=== PATIENT | male | born 1980 | race Hispanic/Latino ===

== ENCOUNTER 2018-10-23 18:09 | Emergency (ER) | payer BC, OTHER ==
--- NOTE | 2018-10-23 19:24 | EDPHYS ---
Physician Documentation [facility] Name: Zak Espinoza Age: 38 yrs Sex: Male : 1980 Arrival Date: 10/23/2018 Time: 18:10 Bed Treatment Private MD: Fred Rodrigues R ED Physician Ford Walker HPI: 10/23 19:57 This 38 yrs old Male presents to ER via Ambulatory with complaints of Groin jr8 Pain, Knee Pain. 19:57 The complaints affect the medial aspect of left thigh. Onset: The symptoms/episode jr8 began/occurred acutely, 2 day(s) ago. Modifying factors: The symptoms are alleviated by nothing. the symptoms are aggravated by movement, weight bearing. Associated signs and symptoms: The patient has no apparent associated signs or symptoms. Severity of symptoms: At their worst the symptoms were mild, in the emergency department the symptoms are unchanged. The patient has not experienced similar symptoms in the past. The patient has not recently seen a physician. Stated that the other day while at work. Was standing still and then initiated movement causing sharp pain to left medial thigh region. Since then describes pain as spasm feeling that will not go away with OTC medication . Historical: - Allergies: 18:23 No Known Allergies; aj - Home Meds: 18:23 None [Active]; aj - PMHx: 18:23 None; aj - PSHx: 18:23 None; aj - Immunization history:: Adult Immunizations up to date. - Social history:: Smoking status: Patient/guardian denies using tobacco. - Ebola Screening: : Patient negative for fever greater than or equal to 101.5 degrees Fahrenheit, and additional compatible Ebola Virus Disease symptoms Patient denies exposure to infectious person Patient denies travel to an Ebola-affected area in the 21 days before illness onset No symptoms or risks identified at this time. ROS: 19:57 Eyes: Negative for injury, pain, redness, and discharge, ENT: Negative for injury, jr8 pain, and discharge, Neck: Negative for injury, pain, and swelling, Cardiovascular: Negative for chest pain, palpitations, and edema, Respiratory: Negative for shortness of breath, cough, wheezing, and pleuritic chest pain, Abdomen/GI: Negative for abdominal pain, nausea, vomiting, diarrhea, and constipation, Back: Negative for injury and pain, Skin: Negative for injury, rash, and discoloration, Neuro: Negative for headache, weakness, numbness, tingling, and seizure. 19:57 MS/extremity: Positive for pain, of the left upper thigh. Exam: 19:57 Eyes: Pupils equal round and reactive to light, extra-ocular motions intact. Lids and jr8 lashes normal. Conjunctiva and sclera are non-icteric and not injected. Cornea within normal limits. Periorbital areas with no swelling, redness, or edema. ENT: Nares patent. No nasal discharge, no septal abnormalities noted. Tympanic membranes are normal and external auditory canals are clear. Oropharynx with no redness, swelling, or masses, exudates, or evidence of obstruction, uvula midline. Mucous membranes moist. Neck: Trachea midline, no thyromegaly or masses palpated, and no cervical lymphadenopathy. Supple, full range of motion without nuchal rigidity, or vertebral point tenderness. No Meningismus. Cardiovascular: Regular rate and rhythm with a normal S1 and S2. No gallops, murmurs, or rubs. Normal PMI, no JVD. No pulse deficits. Respiratory: Lungs have equal breath sounds bilaterally, clear to auscultation and percussion. No rales, rhonchi or wheezes noted. No increased work of breathing, no retractions or nasal flaring. Abdomen/GI: Soft, non-tender, with normal bowel sounds. No distension or tympany. No guarding or rebound. No evidence of tenderness throughout. Back: No spinal tenderness. No costovertebral tenderness. Full range of motion. Skin: Warm, dry with normal turgor. Normal color with no rashes, no lesions, and no evidence of cellulitis. Neuro: Awake and alert, GCS 15, oriented to person, place, time, and situation. Cranial nerves II-XII grossly intact. Motor strength 5/5 in all extremities. Sensory grossly intact. Cerebellar exam normal. Normal gait. 19:57 Musculoskeletal/extremity: Extremities: grossly normal except: noted in the medial aspect of left thigh: pain, tenderness, ROM: intact in all extremities, full active range of motion, full passive range of motion, Circulation is intact in all extremities. Sensation intact. Vital Signs: 18:23 BP 141 / 97; Pulse 90; Resp 16; Temp 98.0; Pulse Ox 99% on R/A; Weight 136.08 kg; aj Height 5 ft. 9 in. (175.26 cm); 18:23 Body Mass Index 44.30 (136.08 kg, 175.26 cm) aj MDM: 19:11 Patient medically screened. jr8 19:22 Data reviewed: vital signs, nurses notes, and as a result, I will discharge patient. jr8 Data interpreted: Pulse oximetry: on room air is 99 %. Interpretation: normal. Counseling: I had a detailed discussion with the patient and/or guardian regarding: the historical points, exam findings, and any diagnostic results supporting the discharge/admit diagnosis, the need for outpatient follow up, a family practitioner, to return to the emergency department if symptoms worsen or persist or if there are any questions or concerns that arise at home. Administered Medications: No medications were administered Disposition: 10/23/18 19:23 Discharged to Home. Impression: Muscle spasm, Pain in left thigh. - Condition is Stable. - Discharge Instructions: Muscle Cramps and Spasms, Musculoskeletal Pain. - Prescriptions for Mobic 7.5 mg Oral Tablet - take 1 tablet by ORAL route once daily take with food; 20 tablet. Cyclobenzaprine 10 mg Oral Tablet - take 1 tablet by ORAL route every 8 hours As needed; 30 tablet. - Medication Reconciliation Form, Thank You Letter, Antibiotic Education, Prescription Opioid Use form. - Follow up: Fred Rodrigues MD; When: 1 week; Reason: Recheck today's complaints, Continuance of care, Re-evaluation by your physician. - Problem is new. - Symptoms have improved. Addendum: 10/25/2018 02:06 Co-signature as Attending Physician, Ford Walker MD. g s Signatures: Berta Laguerre RN RN aj1 Ashley Lucio RN RN aj Abiodun Matute PA PA jr8 Ford Walker MD MD Corrections: (The following items were deleted from the chart) 10/23 20:00 19:23 10/23/2018 19:23 Discharged to Home. Impression: Muscle spasm; Pain in left aj1 thigh. Condition is Stable. Forms are Medication Reconciliation Form, Thank You Letter, Antibiotic Education, Prescription Opioid Use. Follow up: Fred Rodrigues; When: 1 week; Reason: Recheck today's complaints, Continuance of care, Re-evaluation by your physician. Problem is new. Symptoms have improved. jr8
--- NOTE | 2018-10-23 19:24 | ER ---
Nurse's Notes [facility] Name: Zak Espinoza Age: 38 yrs Sex: Male : 1980 Arrival Date: 10/23/2018 Time: 18:10 Bed Treatment Private MD: Fred Rodrigues R Diagnosis: Muscle spasm;Pain in left thigh Presentation: 10/23 18:22 Presenting complaint: Patient states: Pain in left groin that radiates down left leg to aj knee, worse with movement. Transition of care: patient was not received from another setting of care. Onset of symptoms was October 20, 2018. Risk Assessment: Do you want to hurt yourself or someone else? Patient reports no desire to harm self or others. Initial Sepsis Screen: Does the patient meet any 2 criteria? No. Patient's initial sepsis screen is negative. Does the patient have a suspected source of infection? No. Patient's initial sepsis screen is negative. Care prior to arrival: None. 18:22 Method Of Arrival: Ambulatory 18:22 Acuity: MATT 4 aj Triage Assessment: 18:23 General: Appears in no apparent distress. comfortable, Behavior is calm, cooperative, aj appropriate for age. Pain: Complains of pain in left upper thigh and left quadriceps. Neuro: Level of Consciousness is awake, alert, obeys commands, Oriented to person, place, time, situation, Appropriate for age. Respiratory: Airway is patent Respiratory effort is even, unlabored, Respiratory pattern is regular, symmetrical. Derm: Skin is intact, is healthy with good turgor, Skin is. Historical: - Allergies: 18:23 No Known Allergies; aj - Home Meds: 18:23 None [Active]; aj - PMHx: 18:23 None; aj - PSHx: 18:23 None; aj - Immunization history:: Adult Immunizations up to date. - Social history:: Smoking status: Patient/guardian denies using tobacco. - Ebola Screening: : Patient negative for fever greater than or equal to 101.5 degrees Fahrenheit, and additional compatible Ebola Virus Disease symptoms Patient denies exposure to infectious person Patient denies travel to an Ebola-affected area in the 21 days before illness onset No symptoms or risks identified at this time. Screenin:58 Abuse screen: Denies threats or abuse. Denies injuries from another. Nutritional aj1 screening: No deficits noted. Tuberculosis screening: No symptoms or risk factors identified. Fall Risk None identified. Assessment: 19:58 General: Appears in no apparent distress. comfortable, Behavior is calm, cooperative, aj1 appropriate for age. Pain: Complains of pain in left quadriceps and left upper thigh Pain does not radiate. Neuro: Level of Consciousness is awake, alert, obeys commands. Cardiovascular: Patient's skin is warm and dry. Respiratory: Airway is patent Respiratory effort is even, unlabored, Respiratory pattern is regular, symmetrical. GI: No signs and/or symptoms were reported involving the gastrointestinal system. : No signs and/or symptoms were reported regarding the genitourinary system. Derm: Skin is pink, warm \T\ dry. normal. Vital Signs: 18:23 BP 141 / 97; Pulse 90; Resp 16; Temp 98.0; Pulse Ox 99% on R/A; Weight 136.08 kg; aj Height 5 ft. 9 in. (175.26 cm); 18:23 Body Mass Index 44.30 (136.08 kg, 175.26 cm) aj ED Course: 18:10 Patient arrived in ED. as 18:10 None, None is Private Physician. as 18:10 Fred Rodrigues MD is Private Physician. as 18:23 Triage completed. aj 18:23 Arm band placed on left wrist. Patient placed in waiting room, Patient notified of wait aj time. 19:07 Berta Laguerre, GORDON is Primary Nurse. aj1 19:10 Abiodun Matute PA is PHCP. jr8 19:10 Ford Walker MD is Attending Physician. jr8 19:23 Fred Rodrigues MD is Referral Physician. jr8 19:58 Patient has correct armband on for positive identification. aj1 19:58 No provider procedures requiring assistance completed. Patient did not have IV access aj1 during this emergency room visit. Administered Medications: No medications were administered Outcome: 19:23 Discharge ordered by . jr8 19:58 Discharged to home ambulatory, with family. aj1 19:58 Condition: good 19:58 Discharge instructions given to patient, Instructed on discharge instructions, follow up and referral plans. Demonstrated understanding of instructions, follow-up care. 20:00 Patient left the ED. aj1 Signatures: Berta Laguerre RN RN aj1 Ashley Lucio RN RN Becky Salcedo Josh, MIKALA BACH jr8
== END 2018-10-23 20:00 | disposition home or self-care (01) ==
LOC: ER 18:09
DX: M62.838 Other muscle spasm (principal)
CPT/HCPCS: 99281

== ENCOUNTER 2021-03-08 08:09 | Emergency (ER) | payer BC, SELFPAY ==
[2021-03-08] MEDS ORDERED: CASIRIVIMAB/IMDEVIMAB 10 ML VIAL ONE (09:10)
[2021-03-08] MEDS ORDERED: NA CHLORIDE 0.9% 250 ML ONE (09:11)
--- NOTE | 2021-03-08 09:36 | RAD REPORT ---
EXAM DESCRIPTION: RAD - Chest Single View - 03/08/2021 9:08 am CLINICAL HISTORY: COVID, sob Chest pain. COMPARISON: No comparisons FINDINGS: Portable technique limits examination quality. Mild to moderate bilateral pulmonary opacities are present, greatest in the right upper lobe, likely representing underlying viral infection. The heart is normal in size. No displaced fractures.
--- NOTE | 2021-03-08 10:12 | EDPHYS ---
Physician Documentation [facility] Name: Zak Espinoza Age: 40 yrs Sex: Male : 1980 Arrival Date: 03/08/2021 Time: 08:12 Bed 24 Private MD: ED Physician Jim Weiss HPI: 03/08 09:11 This 40 yrs old Male presents to ER via Ambulatory with complaints of rn Shortness Of Breath. 09:11 The patient has shortness of breath at rest, with light activity. Onset: The rn symptoms/episode began/occurred 6 day(s) ago. Duration: The symptoms are intermittent. Duration: The symptoms are intermittent. The patient's shortness of breath is aggravated by exertion, light activity, is alleviated by sitting up. Associated signs and symptoms: Pertinent positives: non-productive cough, Pertinent negatives: fever, hemoptysis, loss of consciousness, vomiting. Severity of symptoms: At their worst the symptoms were mild in the emergency department the symptoms are unchanged. The patient has not experienced similar symptoms in the past. The patient has not recently seen a physician. Patient reports 6 days into his Covid illness, Covid positive, reports mild cough and shortness of breath. Shortness of breath is more when he is sleeping and improved when he sits up. Used to be smoker. No other chronic medical problems. Daughter hospitalized with Covid at [facility]. Another family member also with Covid in the house.. Historical: - Allergies: 08:28 No Known Allergies; jl7 - Home Meds: 08:28 None [Active]; jl7 - PMHx: 08:28 None; jl7 - PSHx: 08:28 None; jl7 - Immunization history:: Adult Immunizations not up to date, Client reports having NOT received the Covid vaccine. - Social history:: Smoking status: Patient denies any tobacco usage or history of. - Family history:: not pertinent. - Hospitalizations: : No recent hospitalization is reported. ROS: 09:11 Constitutional: Negative for fever, chills, and weight loss, Eyes: Negative for injury, rn pain, redness, and discharge, ENT: Negative for injury, pain, and discharge, Neck: Negative for injury, pain, and swelling, Cardiovascular: Negative for chest pain, palpitations, and edema, Respiratory: Negative for wheezing, and pleuritic chest pain Abdomen/GI: Negative for abdominal pain, nausea, vomiting, diarrhea, and constipation, Back: Negative for injury and pain, : Negative for injury, bleeding, discharge, and swelling, MS/Extremity: Negative for injury and deformity, Skin: Negative for injury, rash, and discoloration, Neuro: Negative for headache, numbness, tingling, and seizure. 09:11 All other systems are negative. Exam: 09:11 Constitutional: Overweight male, no acute distress, ambulatory to room Head/Face: rn Normocephalic, atraumatic. Eyes: Pupils equal round and reactive to light, extra-ocular motions intact. Lids and lashes normal. Conjunctiva and sclera are non-icteric and not injected. Cornea within normal limits. Periorbital areas with no swelling, redness, or edema. ENT: No stridor. Mucous membranes moist. Cardiovascular: Regular rate and rhythm. No pulse deficits. Respiratory: No increased work of breathing, no retractions or nasal flaring. Abdomen/GI: Soft, non-tender Skin: Warm, dry MS/ Extremity: Pulses equal, no cyanosis. Neuro: Awake and alert, GCS 15, oriented to person, place, time, and situation. Cranial nerves II-XII grossly intact. Motor strength 5/5 in all extremities. Sensory grossly intact. Cerebellar exam normal. Normal gait. Vital Signs: 08:24 BP 139 / 85; Pulse 88; Resp 17; Temp 97.1; Pulse Ox 98% on R/A; Weight 124.74 kg; jl7 Height 5 ft. 9 in. (175.26 cm); Pain 7/10; 08:41 BP 139 / 85; Pulse 88; Resp 18; Temp 97.1; Pulse Ox 100% ; aj2 10:48 BP 132 / 80; Pulse 80; Resp 20; Temp 97.1; Pulse Ox 99% ; aj2 08:24 Body Mass Index 40.61 (124.74 kg, 175.26 cm) 7 MDM: 08:29 Patient medically screened. rn 10:10 Differential diagnosis: Bronchitis pneumonia, Pneumothorax Covid. Data reviewed: vital rn signs, nurses notes, radiologic studies, plain films, and as a result, I will discharge patient. Data interpreted: monitor technician: rate is 88 beats/min, rhythm is normal sinus rhythm, regular, with no ectopy, Interpretation: normal rate, normal rhythm, Pulse oximetry: on room air is 100 %. Interpretation: normal. Counseling: I had a detailed discussion with the patient and/or guardian regarding: the historical points, exam findings, and any diagnostic results supporting the discharge/admit diagnosis, radiology results, the need for outpatient follow up, to return to the emergency department if symptoms worsen or persist or if there are any questions or concerns that arise at home. Special discussion: I discussed with the patient/guardian in detail that at this point there is no indication for admission to the hospital. It is understood, however, that if the symptoms persist or worsen the patient needs to return immediately for re-evaluation. 03/08 08:40 Order name: XRAY Chest (1 view); Complete Time: 09:37 rn 03/08 08:40 Order name: IV Start; Complete Time: 08:58 rn 03/08 08:40 Order name: Cardiac monitoring; Complete Time: 08:58 rn 03/08 08:40 Order name: O2 Sat Monitoring; Complete Time: 08:58 rn Administered Medications: 09:41 Drug: REGEN-COV Dose Pack 120 mg/mL-120 mg/mL (EUA) 600 mg Route: IV; Rate: calculated aj2 rate; Site: right antecubital; 10:51 Follow up: Rate change ml/hr; IV Status: Completed infusion aj2 Disposition Summary: 03/08/21 10:11 Discharge Ordered Location: Home rn Problem: new rn Symptoms: are unchanged rn Condition: Stable rn Diagnosis - Pneumonia due to SARS-associated coronavirus rn Followup: rn - With: Private Physician - When: As needed - Reason: Recheck today's complaints, Re-evaluation by your physician Discharge Instructions: - Discharge Summary Sheet rn - COVID-19 rn - COVID-19 Frequently Asked Questions rn - 10 Things You Can Do to Manage Your COVID-19 Symptoms at Home - [facility] rn Forms: - Medication Reconciliation Form rn - Thank You Letter rn - Antibiotic last turner - Prescription Opioid Use rn Signatures: Dispatcher [employer] Jim Hernandez MD MD rn Leal, Jahala, RN RN Chema Sal aj2
--- NOTE | 2021-03-08 10:12 | ER ---
Nurse's Notes [facility] Name: Zak Espinoza Age: 40 yrs Sex: Male : 1980 Arrival Date: 03/08/2021 Time: 08:12 Bed 24 Private MD: Diagnosis: Pneumonia due to SARS-associated coronavirus Presentation: 03/08 08:24 Chief complaint: Patient states: Covid + x 6 days with self test from [facility], increased jl7 SOB x 2 days; non-radiating, midsternal chest pain x 1 day. Coronavirus screen: Vaccine status: Patient reports being unvaccinated. Client presents with at least one sign or symptom that may indicate coronavirus-19. Standard/surgical mask placed on the client. Provider contacted for isolation considerations. Client reports previous positive COVID test result. Date of collection: March 03, 2021 home test. Ebola Screen: No symptoms or risks identified at this time. Initial Sepsis Screen: Does the patient meet any 2 criteria? No. Patient's initial sepsis screen is negative. Does the patient have a suspected source of infection? No. Patient's initial sepsis screen is negative. Risk Assessment: Do you want to hurt yourself or someone else? Patient reports no desire to harm self or others. Onset of symptoms was March 03, 2021. Care prior to arrival: None. 08:24 Method Of Arrival: Ambulatory [facility] 08:24 Acuity: MATT 2 jl7 Triage Assessment: 08:28 General: Appears in no apparent distress. uncomfortable, Behavior is calm, cooperative, jl7 appropriate for age. Pain: Complains of pain in mid-sternal area Pain does not radiate. Pain currently is 7 out of 10 on a pain scale. Respiratory: Reports shortness of breath Onset: The symptoms/episode began/occurred gradually, the patient has mild shortness of breath. Historical: - Allergies: 08:28 No Known Allergies; jl7 - Home Meds: 08:28 None [Active]; jl7 - PMHx: 08:28 None; jl7 - PSHx: 08:28 None; jl7 - Immunization history:: Adult Immunizations not up to date, Client reports having NOT received the Covid vaccine. - Social history:: Smoking status: Patient denies any tobacco usage or history of. - Family history:: not pertinent. - Hospitalizations: : No recent hospitalization is reported. Screenin:41 Abuse screen: Denies threats or abuse. Denies injuries from another. Nutritional aj2 screening: No deficits noted. Tuberculosis screening: No symptoms or risk factors identified. Fall Risk None identified. Assessment: 08:41 Cardiovascular: Rhythm is. Respiratory: Airway is patent Respiratory effort is aj2 unlabored. 08:44 Reassessment: Patient appears in no apparent distress at this time. Patient is alert, aj2 oriented x 3, equal unlabored respirations, skin warm/dry/pink. 10:48 Reassessment: Patient appears in no apparent distress at this time. Patient and/or aj2 family updated on plan of care and expected duration. Pain level reassessed. Patient is alert, oriented x 3, equal unlabored respirations, skin warm/dry/pink. Respiratory: No deficits noted. Vital Signs: 08:24 BP 139 / 85; Pulse 88; Resp 17; Temp 97.1; Pulse Ox 98% on R/A; Weight 124.74 kg; jl7 Height 5 ft. 9 in. (175.26 cm); Pain 7/10; 08:41 BP 139 / 85; Pulse 88; Resp 18; Temp 97.1; Pulse Ox 100% ; aj2 10:48 BP 132 / 80; Pulse 80; Resp 20; Temp 97.1; Pulse Ox 99% ; aj2 08:24 Body Mass Index 40.61 (124.74 kg, 175.26 cm) jl7 ED Course: 08:12 Patient arrived in ED. mr 08:28 Triage completed. jl7 08:28 Jim Weiss MD is Attending Physician. rn 08:28 Arm band placed on right wrist. jl7 08:31 Chema Tello is Primary Nurse. aj2 08:41 No apparent distress. Resting quietly. aj2 08:41 Patient has correct armband on for positive identification. aj2 08:41 No provider procedures requiring assistance completed. Patient did not have IV access aj2 during this emergency room visit. 09:08 XRAY Chest (1 view) In Process Unspecified. EDMS 10:48 No apparent distress. Appears to be sleeping. aj2 Administered Medications: 09:41 Drug: REGEN-COV Dose Pack 120 mg/mL-120 mg/mL (EUA) 600 mg Route: IV; Rate: calculated aj2 rate; Site: right antecubital; 10:51 Follow up: Rate change ml/hr; IV Status: Completed infusion aj2 Outcome: 10:11 Discharge ordered by . tejinder 10:52 Patient left the ED. aj2 Signatures: Dispatcher [employer] Krista Ferreira Roman, MD MD rn Leal, Jahala, RN RN jl7 Jenkins, Angelea aj2
[2021-03-08 11:07] VITALS: TEMP 97.1
[2021-03-08 11:10] VITALS: BP 132/80; O2SAT 99
== END 2021-03-08 10:52 | disposition home or self-care (01) ==
LOC: ER 08:09
DX: U07.1 COVID-19 (principal); J12.82 Pneumonia due to coronavirus disease 2019
CPT/HCPCS: 71045; 96365; 99283; J7050

== ENCOUNTER 2022-11-19 15:53 | Emergency (ER) | payer SELFPAY ==
--- OUTSIDE RECORDS SUMMARY | 2022-11-19 15:55 | XMS REPORT | Continuity of Care Document ---
:[address] [facility] t Address [address] [facility] [address] [place] [address] Care Team Providers Name Role Phone Paresh Burns MD Attending Clinician Problems This patient has no known problems. Allergies, Adverse Reactions, Alerts Allergy Allergy Status Severity Reaction(s) Onset Inactive Treating Comm ents Source Name Type Date Date Clinician NO KNOWN Allergy Active [facility] Social History Social Habit Start Date Stop Date Quantity Comments Source History of Smokes tobacco [facility] tobacco use daily [facility] Sex Assigned At [birth year] [facility] kes 00:00:00 00:00:00 [facility] Smoking Status Start Date Stop Date Source Current every day smoker 2021-03-03 00:00:00 [facility] Medications Ordered Filled Start Stop Current Ordering Indication Dosage Frequency Signature Comments Components Source Medication Medication Date Date Medication? Clinician (SIG) Name Name doxycycline 2020- No 100mg Q.5D Take [address] (VIBRAMYCIN 03-03 capsule Luke [facility] ) 100 MG 00:00: 23:59 (100 mg Medic al capsule 00 :00 total) by Center mouth 2 (two) times daily for 7 days. doxycycline 2020- No 100mg Q.5D Take [address] (VIBRAMYCIN 03-03 capsule Luke s ) 100 MG 00:00: 23:59 (100 mg Medic al capsule 00 :00 total) by Center mouth 2 (two) times daily for 7 days. doxycycline 2020- No 100mg Q.5D Take [address] (VIBRAMYCIN 03-03 capsule Luke s ) 100 MG 00:00: 00:00 (100 mg Medic al capsule 00 :00 total) by Center mouth 2 (two) times daily for 7 days. doxycycline 100mg Q.5D Take [address] (VIBRAMYCIN 03-03 capsule Luke s ) 100 MG 00:00: 00:00 (100 mg Medic al capsule 00 :00 total) by Center mouth 2 (two) times daily for 7 days. Vital Signs Vital Name Observation Time Observation Value Comments Source WEIGHT 2021-03-03 06:04:00 136.079 kg HEIGHT 2021-03-03 06:04:00 175.3 cm WEIGHT 2021-03-03 06:04:00 136.079 kg HEIGHT 2021-03-03 06:04:00 175.3 cm Systolic blood 2021-03-03 09:30:00 137 mm[Hg] [facility] Diastolic blood 2021-03-03 09:30:00 84 mm[Hg] [facility] Heart rate 2021-03-03 09:30:00 100 /min [facility] Body temperature 2021-03-03 09:30:00 36.89 Brigitte [facility] Respiratory rate 2021-03-03 09:30:00 18 /min [facility] Oxygen saturation in 2021-03-03 09:30:00 99 /min [facility] Arterial blood by Medical Ce nter Pulse oximetry Body height 2021-03-03 06:04:00 175.3 cm [facility] Body weight 2021-03-03 06:04:00 136.079 kg [facility] BMI 2021-03-03 06:04:00 44.30 kg/m2 [facility] Procedures Procedure Date / Time Performing Clinician Source Performed BASIC METABOLIC PANEL (7) 2021-03-03 07:27:00 Paresh Burns [facility] XR CHEST 1 VIEW PORTABLE / 2021-03-03 07:17:00 Paresh Burns [facility] CBC W/PLT COUNT & AUTO 2021-03-03 06:50:[address] [facility] CBC W/PLT COUNT & AUTO 2021-03-03 06:50:[address] [facility] ED ECG INTERPRETATION 2021-03-03 06:28:17 Paresh Burns [facility] ECG 12-LEAD 2021-03-03 06:09:28 Unknown, Hl7 [facility] ECG 12-LEAD 2021-03-03 06:09:28 Unknown, Hl7 [facility] REPORT OF PROCEDURE - 2021-03-03 00:00:00 ProviderLatisha [facility] ENDOSCOPY SCAN Scanning [facility] Plan of Care Planned Activity Planned Date Details Comments Source Future Scheduled 2023-02-[address] [facility] Test 00:00:00 (Season Ended) [code = [facility] INFLUENZA VACCINE (Season Ended)] Future Scheduled 2022-06-[address] [facility] Test 00:00:00 (12+) [code = [facility] DEPRESSION SCREENING (12+)] Future Scheduled 2021-02-17 INFLUENZA VACCINE (#1) [facility] 00:00:00 [code = INFLUENZA Medical Ce nter VACCINE (#1)] Future Scheduled 2021-02-17 INFLUENZA VACCINE (#1) [facility] 00:00:00 [code = INFLUENZA Medical Ce nter VACCINE (#1)] Future Scheduled 2020-06-[address] [facility] Test 00:00:00 (12+) [code = [facility] DEPRESSION SCREENING (12+)] Future Scheduled 2020-06-[address] [facility] Test 00:00:00 (12+) [code = [facility] DEPRESSION SCREENING (12+)] Future Scheduled [address] [facility] 00:00:00 (procedure) [code = [facility] [id number]] Future Scheduled [address] [facility] Test 00:00:00 (procedure) [code = [facility] [id number]] Future Scheduled [address] [facility] Test 00:00:00 (procedure) [code = [facility] [id number]] Future Scheduled 1997 DTAP/TDAP/TD VACCINES [facility] 00:00:00 (1 - Tdap) [code = Medical C enter DTAP/TDAP/TD VACCINES (1 - Tdap)] Future Scheduled 1997 DTAP/TDAP/TD VACCINES [facility] 00:00:00 (1 - Tdap) [code = Medical C enter DTAP/TDAP/TD VACCINES (1 - Tdap)] Future Scheduled 1997 DTAP/TDAP/TD VACCINES [facility] 00:00:00 (1 - Tdap) [code = Medical C enter DTAP/TDAP/TD VACCINES (1 - Tdap)] Future Scheduled 1996 HEPATITIS C SCREENING [facility] 00:00:00 [code = HEPATITIS C Medical Center SCREENING] Future Scheduled 1996 HEPATITIS C SCRE[facility]ING [facility] 00:00:00 [code = HEPATITIS C Medical Center SCREENING] Future Scheduled 1996 HEPATITIS C SCRE[facility]ING [facility] 00:00:00 [code = HEPATITIS C Medical Center SCREENING] Future Scheduled 1990 COVID-19 VACCINE (1) [facility] Test 00:00:00 [code = COVID-[address] VACCINE (1)] Future Scheduled 1990 COVID-19 VACCINE (1) [facility] Test 00:00:00 [code = COVID-[address] VACCINE (1)] Future Scheduled [address] [facility] Test 00:00:00 Counseling and Medical Cente r Screening (12+) [code = Tobacco Cessation Counseling and Screening (12+)] Future Scheduled [address] [facility] Test 00:00:00 0-64 YRS (1 of 2 - Medical C enter PPSV23) [code = PNEUMOCOCCAL VACCINE 0-64 YRS (1 of 2 - PPSV23)] Future Scheduled [address] [facility] Test 00:00:00 0-64 YRS (1 of 2 - Medical C enter PPSV23) [code = PNEUMOCOCCAL VACCINE 0-64 YRS (1 of 2 - PPSV23)] Future Scheduled [address] [facility] Test 00:00:00 0-64 YRS (1 - PCV) Medical C enter [code = PNEUMOCOCCAL VACCINE 0-64 YRS (1 - PCV)] Future Scheduled 1979-03-28 COVID-19 VACCINE (#1) CH I [facility] Test 00:00:00 [code = COVID-[address] VACCINE (#1)] Encounters Start End Encounter Admission Attending Care Care Encounter Source Date/Time Date/Time Type Type Clinicians Facility Department ID 2021-03-03 2021-03-03 Emergency ER Paresh Burns [facility] [id number] 06:01:00 09:36:00 [facility] 2021-03-03 2021-03-03 Emergency ER [facility] Emergency [id number] [facility] 05:55:00 05:55:00 2021-03-03 2021-03-03 Orders [facility] [id number] 00:00:00 00:00:00 Only [facility] 2021-03-03 2021-03-03 Travel [facility] [id number] [facility] 00:[facility]:00 [facility] Results Test Description Test Time Test Comments Results Result Comments Source Basic Metabolic Panel 2021-03-03 08:23:31 Test Item Value Reference Range Interpretation Comme nts Sodium (test code = 2951-2) 132 meq/L 136-145 L Potassium (test code = 3.4 meq/L 3.5-5.1 L 2823-3) Chloride (test code = 99 meq/L 98-107 2075-0) CO2 (test code = 2027-9) 24 meq/L 22-29 BUN (test code = 3094-0) 7 mg/dL 7-21 Creatinine (test code = 0.72 mg/dL 0.57-1.25 2160-0) Glucose (test code = 134 mg/dL 70-105 H 2345-7) Calcium (test code = 8.2 mg/dL 8.4-10.2 L 00375-3) EGFR (test code = 86737-0) I NSUFFICIENT CLINICAL DATA TO CALCULA TE ESTIMATED GFR. KARI (test code = KARI) Soakers Supervisor ID - PRASAD Johnston Lab Interpretation (test Abnormal code = 22073-5) [facility] [id number] 08:23:31 Test Item Value Reference Range Interpretation Comments Sodium (test code = 132 meq/L 136-145 L 2951-2) Potassium (test code 3.4 meq/L 3.5-5.1 L = 2823-3) Chloride (test code = 99 meq/L 98-107 2075-0) CO2 (test code = 24 meq/L 22-29 8-9) BUN (test code = 7 mg/dL 7-21 3094-0) Creatinine (test code 0.72 mg/dL 0.57-1.25 = 2160-0) Glucose (test code = 134 mg/dL 70-105 H 2345-7) Calcium (test code = 8.2 mg/dL 8.4-10.2 L 77910-7) EGFR (test code = [place] [address]-7) CLINICAL DATA T O CALCULATE ESTIMATED GFR. KARI (test code = KARI) Soakers Supervisor JULES Johnston Lab Interpretation Abnormal (test code = 23013-2) [facility] METABOLIC [id number] 08:23:31 Test Item Value Reference Range Interpretation Comments SODIUM (BEAKER) (test 132 meq/L 136-145 L code = 381) POTASSIUM (BEAKER) 3.4 meq/L 3.5-5.1 L (test code = 379) CHLORIDE (BEAKER) 99 meq/L 98-107 (test code = 382) CO2 (BEAKER) (test 24 meq/L - code = 355) BLOOD UREA NITROGEN 7 mg/dL 7-21 (BEAKER) (test code = 354) CREATININE (BEAKER) 0.72 mg/dL 0.57-1.25 (test code = 358) GLUCOSE RANDOM 134 mg/dL 70-105 H (BEAKER) (test code = 652) CALCIUM (BEAKER) 8.2 mg/dL 8.4-10.2 L (test code = 697) EGFR (BEAKER) (test INSUFFIC IENT CLINICAL code = 1092) DATA TO CALCULA TE ESTIMATED GFR. Soakers Supervisor JULES PARHAM MRAD, CHEST, 1 VIEW, NON [id number] 07:24:00Reason for exam:->DIZZINESSShould this be performed at the bedside?->Yes [facility] 1980 Sex: MFINAL REPORT CLINICAL HISTORY: DIZZINESS TECHNIQUE: 1 view of the chest. COMPARISON: None IMPRESSION: There is pulmonary vascular congestion. There is focal airspace opacity in the right upper lung and at the right lung base suspicious for pneumonia or asymmetric edema. Subpulmonic pleural effusions cannot be excluded. There is no significant appearing cardiomegaly. Signed: Renay Xei Verified Date/Time: 03/03/2021 07:24:24 Reading Location: [address] Neuro Reading Room CBC with platelet count + automated [id number] 07:00:22 Test Item Value Reference Range Interpretation Comments WBC (test code = 6690-2) 5.8 See_Comment [A utomated message] The system [employer] generated this result transmitted ref erence range: 3.5 - 10 .5 K/L. The refe rence range was not u sed to interpret this result as normal/abnor mal. RBC (test code = 789-8) 5.16 See_Comment [Au tomated message] The system [employer] generated this result transmitted ref erence range: 4.63 - 6 .08 M/L. The refe rence range was not u sed to interpret this result as normal/abnor mal. MCHC (test code = 786-4) 34.0 See_Comment [A utomated message] The system [employer] generated this result transmitted ref erence range: 32.3 - 3 6.5 GM/DL. The refe rence range was not u sed to interpret this result as normal/abnor mal. Hematocrit (test code = 47.3 % 40.1-51.0 4544-3) MCV (test code = 787-2) 91.7 fL 79.0-92.2 MCH (test code = 785-6) 31.2 pg 25.7-32.2 RDW (test code = 788-0) 12.2 % 11.6-14.4 Platelets (test code = 179 See_Comment [Aut omated message] 777-3) The system [employer] generated this result transmitted ref erence range: 150 - 45 0 K/CU MM. The referen ce range was not u sed to interpret this result as normal/abnor mal. MPV (test code = 8.9 fL 9.4-12.4 L 21053-0) nRBC (test code = 413) 0 See_Comment [Aut omated message] The system [employer] generated this result transmitted ref erence range: 0 - 0 /1 00 WBC. The refere nce range was not u sed to interpret this result as normal/abnor mal. % Neutros (test code = 80 % 429) % Lymphs (test code = 16 % 430) % Monos (test code = 4 % 431) % Eos (test code = 432) 0 % % Baso (test code = 437) 0 % # Neutros (test code = 4.64 See_Comment [Aut omated message] 670) The system [employer] generated this result transmitted ref erence range: 1.78 - 5 .38 K/L. The refe rence range was not u sed to interpret this result as normal/abnor mal. # Lymphs (test code = 0.91 See_Comment L [Auto mated message] 414) The system [employer] generated this result transmitted ref erence range: 1.32 - 3 .57 K/L. The refe rence range was not u sed to interpret this result as normal/abnor mal. # Monos (test code = 0.24 See_Comment L [Autom ated message] 415) The system [employer] generated this result transmitted ref erence range: 0.30 - 0 .82 K/L. The refe rence range was not u sed to interpret this result as normal/abnor mal. # Eos (test code = 416) 0.00 See_Comment L [Au tomated message] The system [employer] generated this result transmitted ref erence range: 0.04 - 0 .54 K/L. The refe rence range was not u sed to interpret this result as normal/abnor mal. # Baso (test code = 417) 0.02 See_Comment [A utomated message] The system [employer] generated this result transmitted ref erence range: 0.01 - 0 .08 K/L. The refe rence range was not u sed to interpret this result as normal/abnor mal. Immature 1 % 0-1 Granulocytes-Relative (test code = 2801) Lab Interpretation (test Abnormal code = 27069-5) [facility] with platelet count + automated [id number] 07:00:22 Test Item Value Reference Range Interpretation Comments WBC (test code = 6690-2) 5.8 See_Comment [A utomated message] The system [employer] generated this result transmitted ref erence range: 3.5 - 10 .5 K/L. The refe rence range was not u sed to interpret this result as normal/abnor mal. RBC (test code = 789-8) 5.16 See_Comment [Au tomated message] The system [employer] generated this result transmitted ref erence range: 4.63 - 6 .08 M/L. The refe rence range was not u sed to interpret this result as normal/abnor mal. MCHC (test code = 786-4) 34.0 See_Comment [A utomated message] The system [employer] generated this result transmitted ref erence range: 32.3 - 3 6.5 GM/DL. The refe rence range was not u sed to interpret this result as normal/abnor mal. Hematocrit (test code = 47.3 % 40.1-51.0 4544-3) MCV (test code = 787-2) 91.7 fL 79.0-92.2 MCH (test code = 785-6) 31.2 pg 25.7-32.2 RDW (test code = 788-0) 12.2 % 11.6-14.4 Platelets (test code = 179 See_Comment [Aut omated message] 977-3) The system [employer] generated this result transmitted ref erence range: 150 - 45 0 K/CU MM. The referen ce range was not u sed to interpret this result as normal/abnor mal. MPV (test code = 8.9 fL 9.4-12.4 L 94259-1) nRBC (test code = 413) 0 See_Comment [Aut omated message] The system [employer] generated this result transmitted ref erence range: 0 - 0 /1 00 WBC. The refere nce range was not u sed to interpret this result as normal/abnor mal. % Neutros (test code = 80 % 429) % Lymphs (test code = 16 % 430) % Monos (test code = 4 % 431) % Eos (test code = 432) 0 % % Baso (test code = 437) 0 % # Neutros (test code = 4.64 See_Comment [Aut omated message] 670) The system [employer] generated this result transmitted ref erence range: 1.78 - 5 .38 K/L. The refe rence range was not u sed to interpret this result as normal/abnor mal. # Lymphs (test code = 0.91 See_Comment L [Auto mated message] 414) The system [employer] generated this result transmitted ref erence range: 1.32 - 3 .57 K/L. The refe rence range was not u sed to interpret this result as normal/abnor mal. # Monos (test code = 0.24 See_Comment L [Autom ated message] 415) The system [employer] generated this result transmitted ref erence range: 0.30 - 0 .82 K/L. The refe rence range was not u sed to interpret this result as normal/abnor mal. # Eos (test code = 416) 0.00 See_Comment L [Au tomated message] The system [employer] generated this result transmitted ref erence range: 0.04 - 0 .54 K/L. The refe rence range was not u sed to interpret this result as normal/abnor mal. # Baso (test code = 417) 0.02 See_Comment [A utomated message] The system [employer] generated this result transmitted ref erence range: 0.01 - 0 .08 K/L. The refe rence range was not u sed to interpret this result as normal/abnor mal. Immature 1 % 0-1 Granulocytes-Relative (test code = 2801) Lab Interpretation (test Abnormal code = 06500-4) [facility] W/PLT COUNT & AUTO [id number] 07:00:22 Test Item Value Reference Range Interpretation Comments WHITE BLOOD CELL COUNT (BEAKER) 5.8 K/ L 3.5-10.5 (test code = 775) RED BLOOD CELL COUNT (BEAKER) 5.16 M/ L 4.63-6.08 (test code = 761) HEMOGLOBIN (BEAKER) (test code = 16.1 GM/DL 13.7-17.5 410) HEMATOCRIT (BEAKER) (test code = 47.3 % 40.1-51.0 411) MEAN CORPUSCULAR VOLUME (BEAKER) 91.7 fL 79.0-92.2 (test code = 753) MEAN CORPUSCULAR HEMOGLOBIN 31.2 pg 25.7-32.2 (BEAKER) (test code = 751) MEAN CORPUSCULAR HEMOGLOBIN CONC 34.0 GM/DL 32.3-36.5 (BEAKER) (test code = 752) RED CELL DISTRIBUTION WIDTH 12.2 % 11.6-14.4 (BEAKER) (test code = 412) PLATELET COUNT (BEAKER) (test 179 K/CU MM 150-450 code = 756) MEAN PLATELET VOLUME (BEAKER) 8.9 fL 9.4-12.4 L (test code = 754) NUCLEATED RED BLOOD CELLS 0 /100 WBC 0-0 (BEAKER) (test code = 413) NEUTROPHILS RELATIVE PERCENT 80 % (BEAKER) (test code = 429) LYMPHOCYTES RELATIVE PERCENT 16 % (BEAKER) (test code = 430) MONOCYTES RELATIVE PERCENT 4 % (BEAKER) (test code = 431) EOSINOPHILS RELATIVE PERCENT 0 % (BEAKER) (test code = 432) BASOPHILS RELATIVE PERCENT 0 % (BEAKER) (test code = 437) NEUTROPHILS ABSOLUTE COUNT 4.64 K/ L 1.78-5.38 (BEAKER) (test code = 670) LYMPHOCYTES ABSOLUTE COUNT 0.91 K/ L 1.32-3.57 L (BEAKER) (test code = 414) MONOCYTES ABSOLUTE COUNT (BEAKER) 0.24 K/ L 0.30-0.82 L (test code = 415) EOSINOPHILS ABSOLUTE COUNT 0.00 K/ L 0.04-0.54 L (BEAKER) (test code = 416) BASOPHILS ABSOLUTE COUNT (BEAKER) 0.02 K/ L 0.01-0.08 (test code = 417) IMMATURE GRANULOCYTES-RELATIVE 1 % 0-1 PERCENT (BEAKER) (test code = 2801)
--- NOTE | 2022-11-19 17:21 | RAD REPORT ---
EXAM DESCRIPTION: CT - Head Brain Wo Cont - 11/19/2022 5:07 pm CLINICAL HISTORY: NUMBNESS COMPARISON: No comparisons TECHNIQUE: All CT scans are performed using dose optimization technique as appropriate and may inclu de automated exposure control or mA/KV adjustment according to patient size. FINDINGS: No intracranial hemorrhage, hydrocephalus or extra-axial fluid collection.No areas of brai n edema or evidence of midline shift. The paranasal sinuses and mastoids are clear. The calvarium is intact. IMPRESSION: No acute intracranial abnormality.
--- NOTE | 2022-11-19 17:58 | RAD REPORT ---
EXAM DESCRIPTION: RAD - Chest Single View - 11/19/2022 5:33 pm CLINICAL HISTORY: MALAISE COMPARISON: Chest Single View dated 03/08/2021 FINDINGS: Lines: None. Lungs: No evidence of edema or pneumonia. Pleural: No significant pleural effusions or pneumothorax. Cardiac: The heart size is within normal limits. Mediastinum: Within normal limits. Bones: No acute fractures. Other: None IMPRESSION: No acute cardiopulmonary disease.
[2022-11-19 19:57] LABS: Absolute Lymphocytes (CBC) 2.1 K/uL (0.7-4.9); Hematocrit 47.8 % (39.6-49.0); Lymphocytes % 18.7 % (15.3-44.8); MCV 91.7 fL (80-100); MPV 7.3 fL (7.6-11.3); RBC Red Blood Cell Count 5.21 M/uL (4.33-5.43)
[2022-11-19 20:05] LABS: BUN Blood Urea Nitrogen 10 mg/dL (7-18); Bicarbonate 27 mEq/L (21-32); Glomerular Filtration Rate 113 ml/min (=/>90); Glucose Level 100 mg/dL (74-106); Sodium Level 135 mEq/L (136-145)
[2022-11-19 20:06] LABS: Troponin High Sensitivity < 3.0 pg/mL (<58.9)
--- NOTE | 2022-11-19 20:09 | EDPHYS ---
Physician Documentation [facility] Name: Zak Espinoza Age: 42 yrs Sex: Male : 1980 Arrival Date: 11/19/2022 Time: 15:53 Bed 7 Private MD: ED Physician Guicho Zuleta HPI: 11/19 16:09 This 42 yrs old Male presents to ER via Ambulatory with complaints of Numbness jh7 Of Arm. 16:09 42-year-old male reports that he felt slightly disoriented at [employer] last night and felt jh7 like he was mixing up his numbers. Reports that he usually sleeps then but today he slept until 1 PM today and woke up with left arm numbness. Denies any injury or any medical problems. Denies having a PCP. Denies any syncope, speech changes, weakness, visual changes, chest pain, or shortness of breath.. Historical: - Allergies: 16:11 No Known Allergies; ll1 - PMHx: 16:11 None; ll1 - PSHx: 16:11 None; ll1 - Immunization history:: Adult Immunizations up to date. - Social history:: Smoking status: Patient denies any tobacco usage or history of. ROS: 16:09 Constitutional: Negative for fever, chills, and weight loss, Eyes: Negative for injury, jh7 pain, redness, and discharge, Neck: Negative for injury, pain, and swelling, Cardiovascular: Negative for chest pain, palpitations, and edema, Respiratory: Negative for shortness of breath, cough, wheezing, and pleuritic chest pain, Abdomen/GI: Negative for abdominal pain, nausea, vomiting, diarrhea, and constipation, Back: Negative for injury and pain, MS/Extremity: Negative for injury and deformity, Skin: Negative for injury, rash, and discoloration. 16:09 Neuro: Positive for numbness, Negative for altered mental status, dizziness, gait disturbance, headache, syncope, tingling, visual changes, weakness. 16:09 All other systems are negative. Exam: 16:09 Constitutional: This is a well developed, well nourished patient who is awake, alert, jh7 and in no acute distress. Head/Face: Normocephalic, atraumatic. Eyes: Pupils equal round and reactive to light, extra-ocular motions intact. Lids and lashes normal. Conjunctiva and sclera are non-icteric and not injected. Cornea within normal limits. Periorbital areas with no swelling, redness, or edema. Neck: Trachea midline, no thyromegaly or masses palpated, and no cervical lymphadenopathy. Supple, full range of motion without nuchal rigidity, or vertebral point tenderness. No Meningismus. Cardiovascular: Regular rate and rhythm with a normal S1 and S2. No gallops, murmurs, or rubs. Normal PMI, no JVD. No pulse deficits. Respiratory: Lungs have equal breath sounds bilaterally, clear to auscultation and percussion. No rales, rhonchi or wheezes noted. No increased work of breathing, no retractions or nasal flaring. Abdomen/GI: Soft, non-tender, with normal bowel sounds. No distension or tympany. No guarding or rebound. No evidence of tenderness throughout. Back: No spinal tenderness. No costovertebral tenderness. Full range of motion. Skin: Warm, dry with normal turgor. Normal color with no rashes, no lesions, and no evidence of cellulitis. MS/ Extremity: Pulses equal, no cyanosis. Neurovascular intact. Full, normal range of motion. 16:09 Neuro: Orientation: is normal, to person, place, time \T\ situation. Mentation: is normal, Memory: is normal, Cranial nerves: grossly normal, Cerebellar function: is grossly normal, Motor: is normal, Sensation: is normal, Gait: is steady. Vital Signs: 16:09 BP 154 / 88; Pulse 80; Resp 17; Temp 97.3; Pulse Ox 100% ; Height 5 ft. 9 in. ; Pain ll1 0/10; 19:00 BP 127 / 93; Pulse 86; Pulse Ox 99% on R/A; ll3 16:09 Pain Scale: Adult ll1 NIH Stroke Scale Scores: 16:09 NIHSS Score: 0 [facility] MDM: 16:10 Patient medically screened. [facility] 11/19 16:17 Order name: Basic Metabolic Panel; Complete Time: 20:08 [facility] 11/19 16:17 Order name: CBC with Diff; Complete Time: 20:08 [facility] 11/19 16:17 Order name: Troponin HS; Complete Time: 20: [facility] 11/19 16:17 Order name: XRAY Chest (1 view); Complete Time: 18:01 [facility] 11/19 16:17 Order name: CT Head Brain wo Cont; Complete Time: 17:51 [facility] 11/19 16:17 Order name: EKG; Complete Time: 16:18 [facility] 11/19 16:17 Order name: Cardiac monitoring; Complete Time: 20:09 [facility] 11/19 16:17 Order name: EKG - Nurse/Tech; Complete Time: 19:30 [facility] 11/19 16:17 Order name: IV Saline Lock; Complete Time: 19:43 [facility] 11/19 16:17 Order name: Labs collected and sent; Complete Time: 19:44 [facility] 11/19 16:17 Order name: O2 Per Protocol; Complete Time: 19:10 [facility] 11/19 16:17 Order name: O2 Sat Monitoring; Complete Time: 19:10 [facility] EC:26 Rate is 76 beats/min. Rhythm is regular. QRS [place] is Normal. RI interval is normal at [facility] 148 msec. QRS interval is normal at 84 msec. QT interval is normal at 404 msec. No Q waves. T waves are Normal. No ST changes noted. Clinical impression: Normal ECG. Administered Medications: No medications were administered Disposition Summary: 11/19/22 20:08 Discharge Ordered Location: Home [facility] Problem: new jmm Symptoms: have improved jmm Condition: Stable jmm Diagnosis - Numbness of the left upper extremity [facility] Followup: [facility] - With: - When: 2 - 3 days - Reason: Recheck today's complaints Discharge Instructions: - Discharge Summary Sheet [facility] - Stroke Prevention [facility] - Warning Signs of a Stroke [facility] Forms: - Medication Reconciliation Form [facility] - Antibiotic Education [facility] - Prescription Opioid Use [facility] - Thank You Letter [facility] NIH Stroke Scale - NIH Stroke Score Date: 11/19/2022 Time: 16:09 Total Score = 0 10. Dysarthria (speech clarity - read or repeat words) - 0(Normal) 11. Extinction and Inattention (visual/tactile/auditory/spatial/personal) - 0(No abnormality) 1a. Level of Consciousness (LOC) - 0(Alert) 1b. Level of Consciousness (LOC) (Month \T\ Age) - 0(Both) 1c. LOC Commands (Open \T\ Closes Eyes/Electrocardiographic Technician) - 0(Both) 2. Best Gaze (Lateral Gaze Paresis) - 0(Normal) 3. Visual Field Loss - 0(No visual loss) 4. Facial Palsy - 0(Normal) 5a. Left Arm: Motor (10-second hold) - 0(No drift) 5b. Right Arm: Motor (10-second hold) - 0(No drift) 6a. Left Leg: Motor (5-second hold - always test supine) - 0(No drift) 6b. Right Leg: Motor (5-second hold - always test supine) - 0(No drift) 7. Limb Ataxia (finger/nose \T\ heel/mohan - test with eyes open) - 0(Absent) 8. Sensory Loss (pinprick arms/legs/face) - 0(Normal) 9. Best Language: Aphasia (description/naming/reading) - 0(No aphasia) Initials: [facility] Signatures: Dispatcher [employer] Jer Husain PA PA jmm Lewis, Lynsay, RN RN ll1 Mica Peters FNP [employer]SEM[employer] [facility]
--- NOTE | 2022-11-19 20:09 | ER ---
Nurse's Notes [facility] Name: Zak Espinoza Age: 42 yrs Sex: Male : 1980 Arrival Date: 11/19/2022 Time: 15:53 Bed 7 Private MD: Diagnosis: Numbness of the left upper extremity Presentation: 11/19 16:09 Chief complaint: Patient states: Noticed slight confusion last night while working at [employer]. Awoke today around 1300. Noticed L arm felt numb. Feels tired, weak since. Coronavirus screen: Client denies travel out of the [place] in the last 14 days. At this time, the client does not indicate any symptoms associated with coronavirus-19. Ebola Screen: Patient denies travel to an Ebola-affected area in the 21 days before illness onset. Initial Sepsis Screen: Does the patient meet any 2 criteria? No. Patient's initial sepsis screen is negative. Does the patient have a suspected source of infection? No. Patient's initial sepsis screen is negative. Risk Assessment: Do you want to hurt yourself or someone else? Patient reports no desire to harm self or others. Onset of symptoms was November 18, 2022. 16:09 Method Of Arrival: Ambulatory ll1 16:09 Acuity: MATT 3 ll1 Triage Assessment: 16:10 General: Appears uncomfortable, Behavior is calm, cooperative, appropriate for age. ll1 Pain: Complains of pain in left arm. Musculoskeletal: Circulation, motion, and sensation intact. Capillary refill < 3 seconds. Historical: - Allergies: 16:11 No Known Allergies; ll1 - PMHx: 16:11 None; ll1 - PSHx: 16:11 None; ll1 - Immunization history:: Adult Immunizations up to date. - Social history:: Smoking status: Patient denies any tobacco usage or history of. Vital Signs: 16:09 BP 154 / 88; Pulse 80; Resp 17; Temp 97.3; Pulse Ox 100% ; Height 5 ft. 9 in. ; Pain ll1 0/10; 19:00 BP 127 / 93; Pulse 86; Pulse Ox 99% on R/A; ll3 16:09 Pain Scale: Adult ll1 NIH Stroke Scale Scores: 16:09 NIHSS Score: 0 [facility] ED Course: 15:55 Patient arrived in ED. mr 16:10 Mica Peters FNP is PHCP. [facility] 16:10 Guicho Zuleta MD is Attending Physician. [facility] 16:11 Triage completed. ll1 16:11 Arm band placed on. ll1 17:09 CT Head Brain wo Cont In Process Unspecified. EDMS 17:35 XRAY Chest (1 view) In Process Unspecified. EDMS 19:58 PHCP role handed off by Mica Peters FNP [facility] 19:58 Jer Gutierrez PA is PHCP. [facility] 20:08 Nicolás Gibson MD is Referral Physician. [facility] Administered Medications: No medications were administered Outcome: 20:08 Discharge ordered by . [facility] 20:21 Patient left the ED. NIH Stroke Scale - NIH Stroke Score Date: 11/19/2022 Time: 16:09 Total Score = 0 10. Dysarthria (speech clarity - read or repeat words) - 0(Normal) 11. Extinction and Inattention (visual/tactile/auditory/spatial/personal) - 0(No abnormality) 1a. Level of Consciousness (LOC) - 0(Alert) 1b. Level of Consciousness (LOC) (Month \T\ Age) - 0(Both) 1c. LOC Commands (Open \T\ Closes Eyes/[employer]er) - 0(Both) 2. Best Gaze (Lateral Gaze Paresis) - 0(Normal) 3. Visual Field Loss - 0(No visual loss) 4. Facial Palsy - 0(Normal) 5a. Left Arm: Motor (10-second hold) - 0(No drift) 5b. Right Arm: Motor (10-second hold) - 0(No drift) 6a. Left Leg: Motor (5-second hold - always test supine) - 0(No drift) 6b. Right Leg: Motor (5-second hold - always test supine) - 0(No drift) 7. Limb Ataxia (finger/nose \T\ heel/mohan - test with eyes open) - 0(Absent) 8. Sensory Loss (pinprick arms/legs/face) - 0(Normal) 9. Best Language: Aphasia (description/naming/reading) - 0(No aphasia) Initials: [facility] Signatures: Dispatcher [employer] EDNM Jer Gutierrez PA PA Krista Cee mr Vicky Dao RN RN ll1 Sylvia Starkey Paramjit Denson, GORDON RN ll3 Mica Peters, [employer] OPERATOR [employer]QUID [employer] PLANT OPERATOR jh7
[2022-11-19 20:25] VITALS: TEMP 97.3
[2022-11-19 20:26] VITALS: BP 127/93; O2SAT 99
--- NOTE | 2022-11-20 14:17 | EKG ---
Test Date: 2022-11-19 Test Time: 19:26:44 Hand Tufter: CATINA MEASUREMENT RESULTS: Intervals: Rate: 76 AK: 148 QRSD: 84 QT: 404 QTc: 454 [place]: P: 62 AK: 148 QRS: 15 T: 45 INTERPRETIVE STATEMENTS: Normal sinus rhythm Normal ECG No previous ECG available for comparison Electronically Signed On 11-20-22 14:16:39 CDT by Bertin Patino
== END 2022-11-19 20:21 | disposition home or self-care (01) ==
LOC: ER 15:53
DX: R20.0 Anesthesia of skin (principal)
CPT/HCPCS: 36415; 70450; 71045; 80048; 84484; 85025; 93005; 99282

== ENCOUNTER 2022-11-23 14:27 | Emergency (ER) | payer SELFPAY ==
--- OUTSIDE RECORDS SUMMARY | 2022-11-23 14:30 | XMS REPORT | Continuity of Care Document ---
:1980 Author Organization [facility] t Address [address] [address] [place] [address] Care Team Providers Name Role Phone Paresh Burns MD Attending Clinician Problems This patient has no known problems. Allergies, Adverse Reactions, Alerts Allergy Allergy Status Severity Reaction(s) Onset Inactive Treating Comm ents Source Name Type Date Date Clinician NO KNOWN Allergy Active [facility] Social History Social Habit Start Date Stop Date Quantity Comments Source History of Smokes tobacco [facility] tobacco use daily [facility] Sex Assigned At [birth year] [facility] kes 00:00:00 00:00:00 [facility] Smoking Status Start Date Stop Date Source Smokes tobacco daily 2021-03-03 00:00:00 [facility] Medications Ordered Filled Start Stop [...] blood 2021-03-03 09:30:00 137 mm[Hg] [facility] Diastolic blood 2021-03-03 09:30:00 84 mm[Hg] [facility] Heart rate 2021-03-03 09:30:00 100 /min [facility] Body temperature 2021-03-03 09:30:00 36.89 Brigitte [facility] Respiratory rate 2021-03-03 09:30:00 18 /min [facility] Oxygen saturation in 2021-03-03 09:30:00 99 /min [facility] Arterial blood by Medical Ce nter Pulse oximetry Body height 2021-03-03 06:04:00 175.3 cm [facility] Body weight 2021-03-03 06:04:00 136.079 kg [facility] BMI 2021-03-03 06:04:00 44.30 kg/m2 [facility] Procedures Procedure Date / Time Performing Clinician Source Performed BASIC METABOLIC PANEL (7) 2021-03-03 07:27:00 Paresh Burns [facility] XR CHEST 1 VIEW PORTABLE / 2021-03-03 07:17:00 Paresh Burns [facility] CBC W/PLT COUNT & AUTO 2021-03-03 06:50:00 Paresh Burns [facility] CBC W/PLT COUNT & AUTO 2021-03-03 06:50:00 Paresh Burns [facility] ED ECG INTERPRETATION 2021-03-03 06:28:17 Paresh Burns [facility] ECG 12-LEAD 2021-03-03 06:09:28 Unknown, Hl7 Doctor [facility] ECG 12-LEAD 2021-03-03 06:09:28 Unknown, Hl7 Doctor [facility] REPORT OF PROCEDURE - 2021-03-03 00:00:00 ProviderLatisha [facility] ENDOSCOPY SCAN Scanning [facility] Plan of Care Planned Activity Planned Date Details Comments Source Future Scheduled 2023-02-[address] [facility] 00:00:00 (Season Ended) [code = Medic al Center INFLUENZA VACCINE (Season Ended)] Future Scheduled 2023-02-[address] [facility] 00:00:00 (Season Ended) [code = [facility] INFLUENZA VACCINE (Season Ended)] Future Scheduled 2022-06-[address] [facility] Test 00:00:00 (12+) [code = [facility] DEPRESSION SCREENING (12+)] Future Scheduled 2022-06-[address] [facility] Test 00:00:00 (12+) [code = [facility] DEPRESSION SCREENING (12+)] Future Scheduled 2021-02-17 INFLUENZA VACCINE (#1) [facility] 00:00[facility]00 [code = [facility] Medical Ce nter VACCINE (#1)] Future Scheduled 2021-02-17 INFLUENZA VACCINE (#1) [facility] 00:00:00 [code = INFLUENZA Medical Ce nter VACCINE (#1)] Future Scheduled 2020-06-[address] [facility] Test 00:00:00 (12+) [code = Medical Center DEPRESSION SCREENING (12+)] Future Scheduled 2020-06-[address] [facility] Test 00:00:00 (12+) [code = [facility] DEPRESSION SCREENING (12+)] Future Scheduled [address] [facility] 00:00:00 (procedure) [code = [facility] [id number]] Future Scheduled [address] [facility] 00:00:00 (procedure) [code = [facility] [id number]] Future Scheduled [address] [facility] 00:00:00 (procedure) [code = [facility] [id number]] Future Scheduled [address] [facility] 00:00:00 (procedure) [code = [facility] [id number]] Future Scheduled 1997 DTAP/TDAP/TD VACCINES CH I [...] Cessation Counseling and Screening (12+)] Future Scheduled [address] [...] 0-64 YRS (1 - PCV)] Future Scheduled [address] [facility] Test 00:00:00 0-64 YRS (1 - PCV) Medical C enter [code = PNEUMOCOCCAL VACCINE 0-64 YRS (1 - PCV)] Future Scheduled 1979-03-28 COVID-19 VACCINE (#1) [facility] 00:00:00 [code = COVID-[address] VACCINE (#1)] Future Scheduled 1979-03-28 COVID-19 VACCINE (#1) [facility] 00:00:00 [code = COVID-[address] VACCINE (#1)] Encounters Start End Encounter Admission Attending Care Care Encounter Source Date/Time Date/Time Type Type Clinicians Facility Department ID 2021-03-03 2021-03-03 Emergency ER Paresh Burns [facility] [id number] 06:01[facility]00 09:36:00 [facility] 2021-03-03 2021-03-03 Emergency ER [facility] Emergency [id number] [facility] 05:55:00 05:55:00 2021-03-03 2021-03-03 Orders [facility] [id number] 00:00:00 00:00:00 [facility] 2021-03-03 2021-03-03 Travel [facility] [id number] [facility] 00:00:00 00:00:00 [facility] Results Test Description Test Time Test Comments Results Result Comments Source Basic Metabolic Panel 2021-03-03 08:23:31 Test Item Value Reference Range Interpretation Comme nts Sodium (test code = 2951-2) 132 meq/L 136-145 L Potassium (test code = 3.4 meq/L 3.5-5.1 L 2823-3) Chloride (test code = 99 meq/L 98-107 2075-0) CO2 (test code = 2027-) 24 meq/L 22- BUN (test code = 3094-0) 7 mg/dL 7-21 Creatinine (test code = 0.72 mg/dL 0.57-1.25 2160-0) Glucose (test code = 134 mg/dL 70-105 H 2345-7) Calcium (test code = 8.2 mg/dL 8.4-10.2 L 64068-7) EGFR (test code = 95836-6) I NSUFFICIENT CLINICAL DATA TO CALCULA TE ESTIMATED GFR. KARI (test code = KARI) Nuclear Equipment Test Engineer ID - PRASAD M Lab Interpretation (test Abnormal code = 29646-6) [facility] [id number] 08:23:31 Test Item Value Reference Range Interpretation Comments Sodium (test code = 132 meq/L 136-145 L 2951-2) Potassium (test code 3.4 meq/L 3.5-5.1 L = 2823-3) Chloride (test code = 99 meq/L 98-107 5-0) CO2 (test code = 24 meq/L -29 2028-02) BUN (test code = 7 mg/dL 7-21 3094-0) Creatinine (test code 0.72 mg/dL 0.57-1.25 = 2160-0) Glucose (test code = 134 mg/dL 70-105 H 2345-7) Calcium (test code = 8.2 mg/dL 8.4-10.2 L 57163-3) EGFR (test code = [place] [address]-5) CLINICAL DATA T O CALCULATE ESTIMATED GFR. KARI (test code = KARI) Nuclear Equipment Test Engineer ID - PRASAD M Lab Interpretation Abnormal (test code = 89147-9) [facility] [id number] 08:23:31 Test Item Value Reference Range Interpretation Comments SODIUM (BEAKER) (test 132 meq/L 136-145 L code = 381) POTASSIUM (BEAKER) 3.4 meq/L 3.5-5.1 L (test code = 379) CHLORIDE (BEAKER) 99 meq/L 98-107 (test code = 382) CO2 (BEAKER) (test 24 meq/L 22-29 code = 355) BLOOD UREA NITROGEN 7 mg/dL 7-21 (BEAKER) (test code = 354) CREATININE (BEAKER) 0.72 mg/dL 0.57-1.25 (test code = 358) GLUCOSE RANDOM 134 mg/dL 70-105 H (BEAKER) (test code = 652) CALCIUM (BEAKER) 8.2 mg/dL 8.4-10.2 L (test code = 697) EGFR (BEAKER) (test INSUFFIC IENT CLINICAL code = 1092) DATA TO CALCULA TE ESTIMATED GFR. Nuclear Equipment Test Engineer ID - PRASAD MRAD, CHEST, 1 VIEW, NON [id number] 07:24:00Reason for exam:->DIZZINESSShould this be performed at the bedside?->Yes [facility] : 1980 Sex: MFINAL REPORT CLINICAL HISTORY: DIZZINESS TECHNIQUE: 1 view of the chest. COMPARISON: None IMPRESSION: There is pulmonary vascular congestion. There is focal airspace opacity in the right upper lung and at the right lung base suspicious for pneumonia or asymmetric edema. Subpulmonic pleural effusions cannot be excluded. There is no significant appearing cardiomegaly. Signed: Claire MillerMDReport Verified Date/Time: 03/03/2021 07:24:24 Reading Location: [facility] C013 Neuro Reading Room CBC with platelet count + automated [id number] 07:00:22 Test Item Value Reference Range Interpretation Comments WBC (test code = 6690-2) 5.8 See_Comment [A utomated message] The system [employer] generated this result transmitted ref erence range: 3.5 - 10 .5 K/L. The refe rence range was not u sed to interpret this result as normal/abnor mal. RBC (test code = 789-8) 5.16 See_Comment [Au tomated message] The system [employer] generated this result transmitted ref erence range: 4.63 - 6 .08 M/L. The refe rence range was not u sed to interpret this result as normal/abnor mal. MCHC (test code = 786-4) 34.0 See_Comment [A utomated message] The system [employer] generated this result transmitted ref erence range: [...] See_Comment [Aut omated message] 777-3) The system [employer] generated this result transmitted ref erence range: 150 - 45 0 K/CU MM. The referen ce range was not u sed to interpret this result as normal/abnor mal. MPV (test code = 8.9 fL 9.4-12.4 L 66647-4) nRBC (test code = 413) 0 See_Comment [Aut omated message] The system [employer] generated this result transmitted ref erence range: [...] See_Comment [Aut omated message] 670) The system [employer] generated this result transmitted ref erence range: 1.78 - 5 .38 K/L. The refe rence range was not u sed to interpret this result as normal/abnor mal. # Lymphs (test code = 0.91 See_Comment L [Auto mated message] 414) The system [employer] generated this result transmitted ref erence range: 1.32 - 3 .57 K/L. The refe rence range was not u sed to interpret this result as normal/abnor mal. # Monos (test code = 0.24 See_Comment L [Autom ated message] 415) The system [employer] generated this result transmitted ref erence range: 0.30 - 0 .82 K/L. The refe rence range was not u sed to interpret this result as normal/abnor mal. # Eos (test code = 416) 0.00 See_Comment L [Au tomated message] The system [employer] generated this result transmitted ref erence range: 0.04 - 0 .54 K/L. The refe rence range was not u sed to interpret this result as normal/abnor mal. # Baso (test code = 417) 0.02 See_Comment [A utomated message] The system [employer] generated this result transmitted ref erence range: 0.01 - 0 .08 K/L. The refe rence range was not u sed to interpret this result as normal/abnor mal. Immature 1 % 0-1 Granulocytes-Relative (test code = 2801) Lab Interpretation (test Abnormal code = 38629-1) [facility] with platelet count + automated [id number] 07:00:22 Test Item Value Reference Range Interpretation Comments WBC (test code = 6690-2) 5.8 See_Comment [A utomated message] The system [employer] generated this result transmitted ref erence range: 3.5 - 10 .5 K/L. The refe rence range was not u sed to interpret this result as normal/abnor mal. RBC (test code = 789-8) 5.16 See_Comment [Au tomated message] The system [employer] generated this result transmitted ref erence range: 4.63 - 6 .08 M/L. The refe rence range was not u sed to interpret this result as normal/abnor mal. MCHC (test code = 786-4) 34.0 See_Comment [A utomated message] The system [employer] generated this result transmitted ref erence range: [...] See_Comment [Aut omated message] 777-3) The system [employer] generated this result transmitted ref erence range: 150 - 45 0 K/CU MM. The referen ce range was not u sed to interpret this result as normal/abnor mal. MPV (test code = 8.9 fL 9.4-12.4 L 73104-4) nRBC (test code = 413) 0 See_Comment [Aut omated message] The system [employer] generated this result transmitted ref erence range: [...] See_Comment [Aut omated message] 670) The system [employer] generated this result transmitted ref erence range: 1.78 - 5 .38 K/L. The refe rence range was not u sed to interpret this result as normal/abnor mal. # Lymphs (test code = 0.91 See_Comment L [Auto mated message] 414) The system [employer] generated this result transmitted ref erence range: 1.32 - 3 .57 K/L. The refe rence range was not u sed to interpret this result as normal/abnor mal. # Monos (test code = 0.24 See_Comment L [Autom ated message] 415) The system [employer] generated this result transmitted ref erence range: 0.30 - 0 .82 K/L. The refe rence range was not u sed to interpret this result as normal/abnor mal. # Eos (test code = 416) 0.00 See_Comment L [Au tomated message] The system [employer] generated this result transmitted ref erence range: 0.04 - 0 .54 K/L. The refe rence range was not u sed to interpret this result as normal/abnor mal. # Baso (test code = 417) 0.02 See_Comment [A utomated message] The system [employer] generated this result transmitted ref erence range: 0.01 - 0 .08 K/L. The refe rence range was not u sed to interpret this result as normal/abnor mal. Immature 1 % 0-1 Granulocytes-Relative (test code = 2801) Lab Interpretation (test Abnormal code = 29728-8) [facility] W/PLT COUNT & AUTO [id number] 07:00:22 Test Item Value Reference Range Interpretation [...] % 0-1 PERCENT (BEAKER) (test code = 2011)
--- NOTE | 2022-11-23 15:16 | RAD REPORT ---
EXAM DESCRIPTION: [facility] Single View11/23/2022 3:01 pm CLINICAL HISTORY: CHEST PAIN COMPARISON: Chest Single View dated 11/19/2022; Chest Single View dated 03/08/2021 TECHNIQUE: Portable AP view of the chest. FINDINGS: The lungs are clear. No pneumothorax or effusion. The cardiomediastinal contours are unre markable. IMPRESSION: No acute cardiopulmonary process.
--- NOTE | 2022-11-23 15:36 | RAD REPORT ---
EXAM DESCRIPTION: CT - CTHCSPWOC - 11/23/2022 2:59 pm CLINICAL HISTORY: left arm numbness COMPARISON: No comparisons TECHNIQUE: Axial thin cut noncontrast CT images of the head were obtained. Axial thin cut noncontrast CT images of the cervical spine were obtained. Multiplanar reformatted images were generated and reviewed. All CT scans are performed using dose optimization technique as appropriate and may include automated exposure control or mA/KV adjustment according to patient size. FINDINGS: CT HEAD WITHOUT CONTRAST: No acute hemorrhage, hydrocephalus or extra-axial collection is identified.No areas of brain edema or midline shift. The paranasal sinuses and mastoids are clear.The calvarium is intact. CT CERVICAL SPINE WITHOUT CONTRAST: No fracture or subluxation.No prevertebral soft tissues swelling is identified. IMPRESSION: No acute traumatic intracranial or cervical spine findings.
--- NOTE | 2022-11-23 15:38 | RAD REPORT ---
EXAM DESCRIPTION: US - UPPER EXTREMITY VENOUS UNILATE - 11/23/2022 3:13 pm CLINICAL HISTORY: Pain, numbness COMPARISON: None. TECHNIQUE: Real-time sonographic evaluation of the left upper extremity deep venous system was perfo rmed. FINDINGS: Normal compressibility, flow augmentation, phasic flow and spontaneous flow is identified in the left upper extremity deep venous system. No intraluminal filling defects seen. IMPRESSION: No DVT in the left upper extremity.
[2022-11-23 15:50] LABS: Absolute Lymphocytes (CBC) 1.4 K/uL (0.7-4.9); Hematocrit 45.3 % (39.6-49.0); Lymphocytes % 12.7 % (15.3-44.8); MCV 90.7 fL (80-100); MPV 7.1 fL (7.6-11.3)
[2022-11-23 15:58] LABS: BUN Blood Urea Nitrogen 9 mg/dL (7-18); Bicarbonate 25 mEq/L (21-32); Glomerular Filtration Rate 117 ml/min (=/>90); Glucose Level 107 mg/dL (74-106); Sodium Level 133 mEq/L (136-145)
[2022-11-23 16:00] LABS: Troponin High Sensitivity < 3.0 pg/mL (<58.9)
--- NOTE | 2022-11-23 16:38 | RAD REPORT ---
EXAM DESCRIPTION: MRI - Brain Wo Cont - 11/23/2022 4:16 pm CLINICAL HISTORY: LUE numbness COMPARISON: Noncontrast head CT 11/19/2022 TECHNIQUE: Multiplanar multisequence MRI of the brain performed without IV contrast. FINDINGS: No evidence of acute infarct or other diffusion signal abnormality. No evidence of acute intracranial hemorrhage or abnormal extra-axial fluid collections. Ventricular caliber within normal for age. Midline structures are unremarkable. No white matter signal abnormalities. No mass effect or midline shift. Major vascular flow voids are preserved. Mastoid air cells and paranasal sinuses are clear. IMPRESSION: No acute intracranial process. No evidence of ventriculomegaly or mass effect.
--- NOTE | 2022-11-23 18:54 | EDPHYS ---
Physician Documentation [facility] Name: Zak Espinoza Age: 42 yrs Sex: Male : 1980 Arrival Date: 11/23/2022 Time: 14:27 Bed 9 Private MD: ED Physician Margarito Menard HPI: 11/23 14:46 This 42 yrs old Male presents to ER via Ambulatory with complaints of Chest jmm Pain, Shortness Of Breath, Numbness Of Arm. 14:46 The patient or guardian reports chest pain that is located primarily in the substernal jmm area. Onset: gradually, 5 day(s) ago. The pain radiates to the left arm. Is a 42-year-old male with no known chronic medical conditions and presents emerged part with complaints of substernal chest pain beginning this past Monday which intermittently radiates into the left upper arm. Patient states having some numbness and pain in the left upper arm that stops at the elbow. Denies shortness of breath. Denies weakness. Was evaluated previously in the ED with normal results. Pain worsened today.. Historical: - Allergies: 14:40 No Known Allergies; hb - Home Meds: 14:40 Wellbutrin Oral [Active]; hb 14:41 aspirin 81 mg oral tablet,chewable daily [Active]; hb - PMHx: 14:40 None; hb - PSHx: 14:40 None; hb - Immunization history:: Adult Immunizations up to date. - Social history:: Smoking status: Patient denies any tobacco usage or history of. ROS: 14:46 Constitutional: Negative for fever, chills, and weight loss. jmm 14:46 Cardiovascular: Positive for chest pain. 14:46 Neuro: Positive for numbness. 14:46 All other systems are negative. Exam: 14:46 Constitutional: This is a well developed, well nourished patient who is awake, alert, jmm and in no acute distress. Head/Face: atraumatic. Eyes: EOMI, no conjunctival erythema appreciated ENT: Moist Mucus Membranes Neck: Trachea midline, Supple Chest/axilla: Normal chest wall appearance and motion. Cardiovascular: Regular rate and rhythm. No edema appreciated Respiratory: Normal respirations, no respiratory distress appreciated Abdomen/GI: Non distended Back: Normal ROM Skin: General appearance color normal 14:46 Musculoskeletal/extremity: ROM: intact in all extremities, Full range of motion appreciated to the left shoulder, left elbow, left wrist. Full director digital strategy strength appreciated, compartments are soft, full radial pulse, sensation intact, neurovascular. 14:46 Skin: Appearance: Color: normal in color. 14:46 Neuro: Orientation: is normal. 14:46 Psych: Behavior/mood is pleasant, cooperative. Vital Signs: 14:38 BP 154 / 102; Pulse 87; Resp 16; Temp 98.3; Pulse Ox 100% on R/A; Weight 143.79 kg; hb Height 5 ft. 9 in. ; Pain 8/10; 17:22 BP 126 / 76; Pulse 83; Resp 16 S; Pulse Ox 92% on R/A; Pain 0/10; kc6 14:38 Body Mass Index 46.81 (143.79 kg, 175.26 cm) hb 14:38 Pain Scale: Adult hb 17:22 Pain Scale: Adult kc6 MDM: 14:50 Patient medically screened. [facility] 18:45 Differential diagnosis: CVA, acute IN, angina, nonspecific chest pain. Data reviewed: [facility] vital signs, nurses notes. 18:53 Data reviewed: lab test result(s), radiologic studies, MRI, plain films, ultrasound. [facility] Consideration of Admission/Observation Escalation of care including admission/observation considered. Counseling: I had a detailed discussion with the patient and/or guardian regarding: the historical points, exam findings, and any diagnostic results supporting the discharge/admit diagnosis, lab results, radiology results, the need for outpatient follow up, to return to the emergency department if symptoms worsen or persist or if there are any questions or concerns that arise at home. 11/23 14:46 Order name: Basic Metabolic Panel; Complete Time: 16:13 [facility] 11/23 14:46 Order name: CBC with Diff; Complete Time: 16:13 [facility] 11/23 14:46 Order name: Troponin HS; Complete Time: 16:13 [facility] 11/23 16:45 Order name: Troponin High Sensitivity: repeat; Complete Time: 18:49 [facility] 11/23 14:46 Order name: XRAY Chest (1 view); Complete Time: 15:17 [facility] 11/23 14:46 Order name: MRI - Brain Wo Cont; Complete Time: 16:44 [facility] 11/23 14:55 Order name: Head C Spine Mpr Wo Con; Complete Time: 15:48 [facility] 11/23 15:08 Order name: UPPER EXTREMITY VENOUS UNILATE; Complete Time: 15:48 [facility] 11/23 14:46 Order name: EKG; Complete Time: 14:46 [facility] 11/23 14:46 Order name: Cardiac monitoring; Complete Time: 15:27 [facility] 11/23 14:46 Order name: EKG - Nurse/Tech; Complete Time: 14:50 [facility] 11/23 14:46 Order name: IV Saline Lock; Complete Time: 15:27 [facility] 11/23 14:46 Order name: Labs collected and sent; Complete Time: 15:27 [facility] 11/23 14:46 Order name: O2 Per Protocol; Complete Time: 15:27 [facility] 11/23 14:46 Order name: O2 Sat Monitoring; Complete Time: 15:27 [facility] Administered Medications: No medications were administered Disposition: 20:07 Co-signature as Attending Physician, Margarito CARLSON was immediately available on-site ms3 in the Emergency Department for consultation in the care of the patient. Disposition Summary: 11/23/22 18:53 Discharge Ordered Location: Home jmm Condition: Stable jmm Diagnosis - Chest pain, unspecified jmm - Paresthesia of skin jmm Followup: jmm - With: Private Physician - When: 1 - 2 days - Reason: Recheck today's complaints, Continuance of care, Re-evaluation by your physician Discharge Instructions: - Discharge Summary Sheet jmm - Nonspecific Chest Pain, Adult jmm - Paresthesia jmm Forms: - Medication Reconciliation Form jmm - Thank You Letter jmm - Antibiotic Education jmm - Prescription Opioid Use jmm Signatures: Dispatcher [employer] EDMS Jer Gutierrez PA PA jmErika Stacy, RN RN Margarito Almeida DO DO ms3 Corrections: (The following items were deleted from the chart) 14:41 14:40 Home Meds: None; hb hb 14:55 14:47 Head Brain Wo Cont+CT.RAD.BRZ ordered. EDMS EDMS 14:55 14:50 C Spine Wo Con+CT.RAD.BRZ ordered. EDMS EDMS 15:08 14:47 Extremity Venous Uni Ltd+US.RAD.BRZ ordered. EDMS EDMS
--- NOTE | 2022-11-23 18:54 | ER ---
Nurse's Notes [facility] Name: Zak Espinoza Age: 42 yrs Sex: Male : 1980 Arrival Date: 11/23/2022 Time: 14:27 Bed 9 Private MD: Diagnosis: Chest pain, unspecified;Paresthesia of skin Presentation: 11/23 14:38 Chief complaint: Intermittent eft sided chest pain that radiates to left arm and SOB x hb 5 days. Also reports intermittent tingling of left arm. Seen in ED for same s/s last . Coronavirus screen: At this time, the client does not indicate any symptoms associated with coronavirus-19. Ebola Screen: No symptoms or risks identified at this time. Initial Sepsis Screen: Does the patient meet any 2 criteria? No. Patient's initial sepsis screen is negative. Does the patient have a suspected source of infection? No. Patient's initial sepsis screen is negative. Risk Assessment: Do you want to hurt yourself or someone else? Patient reports no desire to harm self or others. Onset of symptoms was November 19, 2022. 14:38 Method Of Arrival: Ambulatory hb 14:38 Acuity: MATT 3 hb Historical: - Allergies: 14:40 No Known Allergies; hb - Home Meds: 14:40 Wellbutrin Oral [Active]; hb 14:41 aspirin 81 mg oral tablet,chewable daily [Active]; hb - PMHx: 14:40 None; hb - PSHx: 14:40 None; hb - Immunization history:: Adult Immunizations up to date. - Social history:: Smoking status: Patient denies any tobacco usage or history of. Screenin:00 [facility] ED Fall Risk Assessment (Adult) History of falling in the last 3 months, kc6 including since admission No falls in past 3 months (0 pts) Confusion or Disorientation No (0 pts) Intoxicated or Sedated No (0 pts) Impaired Gait No (0 pts) Mobility Assist Device Used No (0 pt) Altered Elimination No (0 pt) Score/Fall Risk Level 0 - 2 = Low Risk Oriented to surroundings, Maintained a safe environment, Educated pt \T\ family on fall prevention, incl call for assistance when getting out of bed, Assessed \T\ reinforced patient's understanding of fall precautions, Hourly rounding (assess needs \T\ fall precautionary measures) done. Abuse screen: Denies threats or abuse. Denies injuries from another. Nutritional screening: No deficits noted. Tuberculosis screening: No symptoms or risk factors identified. Assessment: 15:00 General: Appears in no apparent distress. comfortable, obese, Behavior is calm, kc6 cooperative, appropriate for age. Pain: Denies pain. Neuro: Martin Agitation-Sedation Scale (RASS): 0 - Alert and Calm Level of Consciousness is awake, alert, obeys commands, Oriented to person, place, time, situation, Appropriate for age. Cardiovascular: Denies chest pain, Capillary refill < 3 seconds. Respiratory: Airway is patent Trachea midline Respiratory effort is even, unlabored, Respiratory pattern is regular, symmetrical. GI: No signs and/or symptoms were reported involving the gastrointestinal system. : No signs and/or symptoms were reported regarding the genitourinary system. EENT: No signs and/or symptoms were reported regarding the EENT system. Derm: No signs and/or symptoms reported regarding the dermatologic system. Skin is intact, Skin is pink, warm \T\ dry. Musculoskeletal: No signs and/or symptoms reported regarding the musculoskeletal system. Circulation, motion, and sensation intact. Capillary refill < 3 seconds, Range of motion: intact in all extremities. 16:00 Reassessment: Patient appears in no apparent distress at this time. No changes from kc6 previously documented assessment. Patient and/or family updated on plan of care and expected duration. Pain level reassessed. Patient is alert, oriented x 3, equal unlabored respirations, skin warm/dry/pink. 17:00 Reassessment: Patient appears in no apparent distress at this time. No changes from kc6 previously documented assessment. Patient and/or family updated on plan of care and expected duration. Pain level reassessed. Patient is alert, oriented x 3, equal unlabored respirations, skin warm/dry/pink. 18:00 Reassessment: Patient appears in no apparent distress at this time. No changes from kc6 previously documented assessment. Patient and/or family updated on plan of care and expected duration. Pain level reassessed. Patient is alert, oriented x 3, equal unlabored respirations, skin warm/dry/pink. 18:59 Reassessment: Patient appears in no apparent distress at this time. No changes from kc6 previously documented assessment. Patient and/or family updated on plan of care and expected duration. Pain level reassessed. Patient is alert, oriented x 3, equal unlabored respirations, skin warm/dry/pink. Vital Signs: 14:38 BP 154 / 102; Pulse 87; Resp 16; Temp 98.3; Pulse Ox 100% on R/A; Weight 143.79 kg; hb Height 5 ft. 9 in. ; Pain 8/10; 17:22 BP 126 / 76; Pulse 83; Resp 16 S; Pulse Ox 92% on R/A; Pain 0/10; kc6 14:38 Body Mass Index 46.81 (143.79 kg, 175.26 cm) hb 14:38 Pain Scale: Adult hb 17:22 Pain Scale: Adult kc6 ED Course: 14:35 Patient arrived in ED. kj1 14:40 Triage completed. hb 14:41 Jer Gutierrez PA is PHCP. [facility] 14:41 Margarito Menard DO is Attending Physician. [facility] 14:41 Arm band placed on. hb 15:00 Head C Spine Mpr Wo Con In Process Unspecified. EDMS 15:00 Patient has correct armband on for positive identification. Bed in low position. Call kc6 light in reach. Side rails up X 1. Adult w/ patient. Client placed on continuous cardiac and pulse oximetry monitoring. NIBP monitoring applied. pvc monitor on. 15:02 XRAY Chest (1 view) In Process Unspecified. EDMS 15:08 UPPER EXTREMITY VENOUS UNILATE In Process Unspecified. EDMS 15:09 Zenobia Skinner, RN is Primary Nurse. kc6 15:27 Inserted saline lock: 20 gauge in right antecubital area, using aseptic technique. kc6 Blood collected. Patient maintains SpO2 saturation greater than 95% on room air. 16:12 MRI - Brain Wo Cont In Process Unspecified. EDMS 19:13 No provider procedures requiring assistance completed. IV discontinued, intact, kc6 bleeding controlled, No redness/swelling at site. Pressure dressing applied. Administered Medications: No medications were administered Medication: 19:13 VIS not applicable for this client. kc6 Outcome: 18:53 Discharge ordered by . jm 19:13 Discharged to home ambulatory, with significant other. kc6 19:13 Condition: improved 19:13 Discharge instructions given to patient, Instructed on discharge instructions, follow up and referral plans. Demonstrated understanding of instructions, follow-up care. 19:13 Patient left the ED. kc6 Signatures: Dispatcher [employer] EDJer Pastrana PA PA jmm Baxter, Heather, RN RN Alia Corea kj1 Zenobia Skinner RN RN kc6 Corrections: (The following items were deleted from the chart) 14:41 14:40 Home Meds: None; elif asencio
[2022-11-23 19:49] VITALS: TEMP 98.3
[2022-11-23 19:51] VITALS: BP 126/76; O2SAT 92
--- NOTE | 2022-11-24 13:26 | EKG ---
Test Date: 2022-11-23 Test Time: 14:47:33 Immigration Judge: HB MEASUREMENT RESULTS: Intervals: Rate: 80 OR: 148 QRSD: 82 QT: 374 QTc: 431 [place]: P: 56 OR: 148 QRS: 5 T: 54 INTERPRETIVE STATEMENTS: Normal sinus rhythm Normal ECG Compared to ECG 11/19/2022 19:26:44 No significant changes Electronically Signed On 11-24-22 13:25:14 CDT by Bertin Patino
--- NOTE | 2022-11-25 14:52 | EKG ---
Test Date: 2022-11-23 Test Time: 14:47:58 Energy Economist: HB MEASUREMENT RESULTS: Intervals: Rate: 86 WV: 142 QRSD: 82 QT: 372 QTc: 445 [place]: P: 43 WV: 142 QRS: 8 T: 79 INTERPRETIVE STATEMENTS: Normal sinus rhythm Normal ECG Compared to ECG 11/23/2022 14:47:33 No significant changes Electronically Signed On 11-25-22 14:45:10 CDT by Anirudh Swanson
== END 2022-11-23 19:13 | disposition home or self-care (01) ==
LOC: ER 14:27
DX: R07.9 Chest pain, unspecified (principal); R20.2 Paresthesia of skin; R06.02 Shortness of breath
CPT/HCPCS: 36415; 70450; 70551; 71045; 72125; 80048; 84484; 85025; 93005; 93971; 99285

== ENCOUNTER 2023-05-28 09:36 | Emergency (ER) | payer SELFPAY ==
[2023-05-28] MEDS ORDERED: NA CHLORIDE 0.9% 1,000 ML ONE (10:19)
--- NOTE | 2023-05-28 10:35 | RAD REPORT ---
EXAM DESCRIPTION: CT - Head Brain Wo Cont - 05/28/2023 10:11 am CLINICAL HISTORY: SYNCOPE Headache, drowsiness, syncope COMPARISON: <Comparisons> TECHNIQUE: All CT scans are performed using dose optimization technique as appropriate and may inclu de automated exposure control or mA/KV adjustment according to patient size. FINDINGS: No intracranial hemorrhage, hydrocephalus or extra-axial fluid collection.No areas of brai n edema or evidence of midline shift. The paranasal sinuses and mastoids are clear. The calvarium is intact. IMPRESSION: No acute intracranial abnormality.
[2023-05-28 10:41] LABS: Absolute Lymphocytes (CBC) 1.6 K/uL (0.7-4.9); Hematocrit 42.7 % (39.6-49.0); Lymphocytes % 14.4 % (15.3-44.8); MCV 90.8 fL (80-100); MPV 7.1 fL (7.6-11.3); Platelets 314 thou/uL (152-406); RBC Red Blood Cell Count 4.71 M/uL (4.33-5.43)
[2023-05-28 10:56] LABS: Albumin 3.2 g/dL (3.4-5.0); Bilirubin Direct 0.1 mg/dL (0-0.2); Bilirubin Indirect, Calculated 0.3 mg/dL (0.2-0.8); Bilirubin Total 0.4 mg/dL (0.2-1.0); Magnesium 2.1 mg/dL (1.6-2.4); Protein, Total 7.9 g/dL (6.4-8.2); Troponin High Sensitivity 3.2 pg/mL (<58.9)
[2023-05-28 11:28] LABS: SARS-CoV-2 Antigen Rapid Res Negative (Negative)
--- NOTE | 2023-05-28 11:45 | EDPHYS ---
Physician Documentation [facility] Name: Zak Espinoza Age: 42 yrs Sex: Male : 1980 Arrival Date: 05/28/2023 Time: 09:36 Bed 13 Private MD: ED Physician Margarito Menard HPI: 05/28 17:28 This 42 yrs old Male presents to ER via EMS with complaints of Syncope. sb4 17:28 Patient was at [employer] this morning, had not eaten anything, had taken a few sips of sweet sb4 tea. States he started to feel lightheaded and nauseous so he got up to walk to the bathroom. As he was walking to the restroom he reportedly had a syncopal episode. When EMS arrived, they state that he was mildly diaphoretic. Patient states that his symptoms has resolved since arrival. states that he is under a lot of stress as this is the anniversary of his daughter's . He denies any headache, chest pain, shortness of breath, nausea, vomiting. He does endorse a history of prediabetes but is not on any medication for it. Historical: - Allergies: 10:20 No Known Allergies; jl7 - Home Meds: 10:20 aspirin 81 mg Oral tablet daily [Active]; jl7 - PMHx: 10:20 Hypertensive disorder; Anxiety; Hypercholesterolemia; jl7 - Immunization history:: Adult Immunizations unknown. - Social history:: Smoking status: Patient denies any tobacco usage or history of. ROS: 17:28 Constitutional: Negative for fever, chills, and weight loss, sb4 17:28 Neuro: Positive for syncope, 17:28 All other systems are negative, Exam: 17:28 Constitutional: This is a well developed, well nourished patient who is awake, alert, sb4 and in no acute distress. Head/Face: Normocephalic, atraumatic. Eyes: Extra-ocular motions intact. Periorbital areas with no swelling, redness, or edema. ENT: Mucous membranes moist. Cardiovascular: Regular rate and rhythm with a normal S1 and S2. Respiratory: Lungs have equal breath sounds bilaterally, clear to auscultation and percussion. No rales, rhonchi or wheezes noted. No increased work of breathing, no retractions or nasal flaring. Abdomen/GI: Soft, non-tender, no distension. Skin: Warm, dry with normal turgor. Normal color with no rashes, no lesions, and no evidence of cellulitis. MS/ Extremity: Pulses equal, no cyanosis. Neurovascular intact. Full, normal range of motion. Neuro: Awake and alert, GCS 15, oriented to person, place, time, and situation. Motor strength 5/5 in all extremities. Sensory grossly intact. Vital Signs: 09:50 BP 129 / 78; Pulse 84; Resp 15; Temp 98.8; Pulse Ox 97% ; Weight 145.15 kg; Height 5 jl7 ft. 9 in. ; Pain 0/10; 10:30 BP 125 / 77 Supine; Pulse 88; jl7 10:32 BP 131 / 76 Sitting; Pulse 90; jl7 10:34 BP 126 / 85 Standing; Pulse 90; jl7 11:30 BP 115 / 70; Pulse 83; Resp 15; Pulse Ox 97% ; Pain 0/10; jl7 09:50 Body Mass Index 47.26 (145.15 kg, 175.26 cm) jl7 09:50 Pain Scale: Adult jl7 11:30 Pain Scale: Adult jl7 MDM: 09:41 Patient medically screened. sb4 17:28 Differential Diagnosis: cardiac arrhythmia, cerebrovascular accident, emotional sb4 response, idiopathic syncope, pseudo seizure, seizure, transient ischemic attack, vasovagal episode, hypoglycemia, orthostatic hypotension. Data reviewed: vital signs, nurses notes, EMS record, lab test result(s), EKG, radiologic studies, and as a result, I will discharge patient. Consideration of Admission/Observation Escalation of care including admission/observation considered. Historians other than the Patient: Spouse/Significant Other: significant other. Care significantly affected by the following chronic conditions: Hypertension, Obesity. Counseling: I had a detailed discussion with the patient and/or guardian regarding the historical points, exam findings, and any diagnostic results supporting the discharge/admit diagnosis, lab results, radiology results, the need for outpatient follow up, for definitive care, to return to the emergency department if symptoms worsen or persist or if there are any questions or concerns that arise at home. 05/28 09:46 Order name: Basic Metabolic Panel; Complete Time: 10:59 sb4 05/28 09:46 Order name: CBC with Diff; Complete Time: 10:51 sb4 05/28 09:46 Order name: Hepatic Function; Complete Time: 10:59 sb4 05/28 09:46 Order name: Magnesium; Complete Time: 10:59 sb4 05/28 09:46 Order name: Troponin High Sensitivity; Complete Time: 10:59 sb4 05/28 10:01 Order name: Glucose, Ancillary Testing; Complete Time: 10:01 EDMS 05/28 10:51 Order name: SARS RAPID; Complete Time: 11:40 sb4 05/28 10:51 Order name: Flu; Complete Time: 11:40 sb4 05/28 09:46 Order name: CT Head Brain wo Cont; Complete Time: 10:36 sb4 05/28 09:46 Order name: EKG; Complete Time: 09:47 sb4 05/28 09:46 Order name: Cardiac monitoring; Complete Time: 10:21 sb4 05/28 09:46 Order name: EKG - Nurse/Tech; Complete Time: 10:44 sb4 05/28 09:46 Order name: IV Saline Lock; Complete Time: 10:44 sb4 05/28 09:46 Order name: Labs collected and sent; Complete Time: 10:44 sb4 05/28 09:46 Order name: O2 Sat Monitoring; Complete Time: 10:21 sb4 05/28 09:46 Order name: Orthostatics; Complete Time: 10:44 sb4 EC:34 Rate is 82 beats/min. Rhythm is regular, Normal Sinus Rhythm. QRS [place] is Normal. MD sb4 interval is normal at 156 msec. QRS interval is normal at 100 msec. QT interval is normal at 386 msec. No Q waves. T waves are Normal. No ST changes noted. Clinical impression: Normal ECG. Interpreted by me. Reviewed by me. Administered Medications: 10:35 Drug: NS 0.9% IV 1000 ml IV at 1 bolus Per protocol; 1000 mL bolus Route: IV; Rate: 1 jl7 bolus; Site: right antecubital; 11:45 Follow up: Response: No adverse reaction; IV Status: Completed infusion; IV Intake: jl7 1000ml Point of Care Testing: Blood Glucose: 09:45 Blood Glucose: 133 mg/dL; jl7 Ranges: Critical Glucose Levels:Adult <50 mg/dl or >400 mg/dl <40 mg/dl or >180 mg/dl Disposition: 14:32 I was immediately available on-site in the Emergency Department for consultation in the ms3 care of the patient. Disposition Summary: 05/28/23 11:44 Discharge Ordered Notes: Location: Home sb4 Problem: new sb4 Symptoms: are resolved sb4 Condition: Stable sb4 Diagnosis - Hypoglycemia, unspecified sb4 Followup: sb4 - With: Emergency Department - When: As needed - Reason: Trouble breathing, Worsening of condition Discharge Instructions: - Discharge Summary Sheet sb4 - Blood Glucose Monitoring, Adult sb4 - Hypoglycemia, [id number] sb4 - Preventing Hypoglycemia sb4 Forms: - Medication Reconciliation Form sb4 - Thank You Letter sb4 - Antibiotic Education sb4 - Prescription Opioid Use sb4 - Patient Portal Instructions sb4 - Leadership Thank You Letter sb4 Signatures: Dispatcher [employer] Adele Navarro, RN RN jl7 Margarito Menard, DO ms3 Lennie Waller, DELL SHARPE sb4
--- NOTE | 2023-05-28 11:45 | ER ---
Nurse's Notes [facility] Name: Zak Espinoza Age: 42 yrs Sex: Male : 1980 Arrival Date: 05/28/2023 Time: 09:36 Bed 13 Private MD: Diagnosis: Hypoglycemia, unspecified Presentation: 05/28 09:49 Chief complaint: EMS states: Toned out for syncopal episode. Pt took a drink of sweet jl7 tea, felt nauseous and walked to restroom, got diaphoretic and felt light headed, fell back onto counter, did not hit head. Initial bgl 98, BP 120/80s, A\T\Ox4. 09:49 Acuity: MATT 2 jl7 09:49 Method Of Arrival: EMS: [facility] jl7 09:50 Coronavirus screen: At this time, the client does not indicate any symptoms associated jl7 with coronavirus-19. Ebola Screen: No symptoms or risks identified at this time. Initial Sepsis Screen: Does the patient meet any 2 criteria? No. Patient's initial sepsis screen is negative. Does the patient have a suspected source of infection? No. Patient's initial sepsis screen is negative. Risk Assessment: Do you want to hurt yourself or someone else? Patient reports no desire to harm self or others. 09:50 Onset of symptoms was May 28, 2023. Care prior to arrival: IV initiated. 20 GA, jl7 forearm, Glucose check: 98. Triage Assessment: 09:50 General: Appears in no apparent distress. uncomfortable, Behavior is calm, cooperative, jl7 appropriate for age. Pain: Denies pain. Neuro: Level of Consciousness is awake, alert, obeys commands, Oriented to person, place, time, situation, Reports Light headed, symptoms resolved. Cardiovascular: Patient's skin is warm and dry. Respiratory: Airway is patent Respiratory effort is even, unlabored, Respiratory pattern is regular, symmetrical. GI: Reports nausea, symptoms resolved. Derm: Skin is pink, warm \T\ dry. Historical: - Allergies: 10:20 No Known Allergies; jl7 - Home Meds: 10:20 aspirin 81 mg Oral tablet daily [Active]; jl7 - PMHx: 10:20 Hypertensive disorder; Anxiety; Hypercholesterolemia; jl7 - Immunization history:: Adult Immunizations unknown. - Social history:: Smoking status: Patient denies any tobacco usage or history of. Screenin:47 [facility] ED Fall Risk Assessment (Adult) History of falling in the last 3 months, jl7 including since admission No falls in past 3 months (0 pts) Score/Fall Risk Level 3 or more points = High Risk Oriented to surroundings, Maintained a safe environment. Abuse screen: Denies threats or abuse. Denies injuries from another. Nutritional screening: No deficits noted. Tuberculosis screening: No symptoms or risk factors identified. Assessment: 10:00 General: See triage assessment. jl7 10:00 Neuro: Level of Consciousness is awake, alert, obeys commands, Oriented to person, jl7 place, time, situation. Cardiovascular: Rhythm is regular. 11:00 Reassessment: Patient appears in no apparent distress at this time. No changes from jl7 previously documented assessment. Patient and/or family updated on plan of care and expected duration. Pain level reassessed. Patient is alert, oriented x 3, equal unlabored respirations, skin warm/dry/pink. Vital Signs: 09:50 BP 129 / 78; Pulse 84; Resp 15; Temp 98.8; Pulse Ox 97% ; Weight 145.15 kg; Height 5 jl7 ft. 9 in. ; Pain 0/10; 10:30 BP 125 / 77 Supine; Pulse 88; jl7 10:32 BP 131 / 76 Sitting; Pulse 90; jl7 10:34 BP 126 / 85 Standing; Pulse 90; jl7 11:30 BP 115 / 70; Pulse 83; Resp 15; Pulse Ox 97% ; Pain 0/10; jl7 09:50 Body Mass Index 47.26 (145.15 kg, 175.26 cm) jl7 09:50 Pain Scale: Adult jl7 11:30 Pain Scale: Adult jl7 ED Course: 09:41 Patient arrived in ED. sb4 09:41 Lennie Waller PA-C is PHCP. sb4 09:41 Margarito Menard DO is Attending Physician. sb4 09:49 Adele Jang, GORDON is Primary Nurse. jl7 09:50 Arm band placed on right wrist. jl7 09:50 Patient has correct armband on for positive identification. Provided Education on: jl7 tests. 09:52 Triage completed. jl7 10:13 CT Head Brain wo Cont In Process Unspecified. EDMS 10:30 Initial lab(s) drawn, by me, sent to lab. EKG done, by ED staff, reviewed by Lennie Waller PA-C. Maintain EMS IV. Dressing intact. Good blood return noted. Site clean \T\ dry. Gauge \T\ site: 20 Right AC. 10:47 Provided Education on: use of call hwang. jl7 11:05 SARS RAPID Sent. mb9 11:05 Flu Sent. mb9 11:55 No provider procedures requiring assistance completed. IV discontinued, intact, jl7 bleeding controlled, No redness/swelling at site. Pressure dressing applied. Administered Medications: 10:35 Drug: NS 0.9% IV 1000 ml IV at 1 bolus Per protocol; 1000 mL bolus Route: IV; Rate: 1 jl7 bolus; Site: right antecubital; 11:45 Follow up: Response: No adverse reaction; IV Status: Completed infusion; IV Intake: jl7 1000ml Medication: 10:47 VIS not applicable for this client. jl7 Point of Care Testing: Blood Glucose: 09:45 Blood Glucose: 133 mg/dL; jl7 Ranges: Intake: 11:45 IV: 1000ml; Total: 1000ml. jl7 Outcome: 11:44 Discharge ordered by . sb4 11:55 Discharged to home ambulatory, with family, jl7 11:55 Condition: stable 11:55 Discharge instructions given to patient, family, Instructed on discharge instructions, follow up and referral plans. Demonstrated understanding of instructions, follow-up care, 11:56 Patient left the ED. jl7 Signatures: Dispatcher [employer] Adele Navarro RN RN Lennie Chapa PA-C PA-C sb4 Breneman, Mary Beth, RN RN mb9
[2023-05-28 12:01] VITALS: TEMP 98.8; O2SAT 97
[2023-05-28 12:05] VITALS: BP 115/70
--- NOTE | 2023-05-30 13:50 | EKG ---
Test Date: 2023-05-28 Test Time: 10:30:50 Digital Community Manager: KENNETH MEASUREMENT RESULTS: Intervals: Rate: 82 UT: 156 QRSD: 100 QT: 386 QTc: 450 [place]: P: 59 UT: 156 QRS: 11 T: 69 INTERPRETIVE STATEMENTS: Normal sinus rhythm Normal ECG Compared to ECG 11/23/2022 14:47:58 No significant changes Electronically Signed On 05-30-23 13:41:48 MUSEUM TOUR GUIDE by Bertin Patino
== END 2023-05-28 11:56 | disposition home or self-care (01) ==
LOC: ER 09:36
DX: E16.2 Hypoglycemia, unspecified (principal); R55 Syncope and collapse; R42 Dizziness and giddiness; R11.0 Nausea; F41.9 Anxiety disorder, unspecified; I10 Essential (primary) hypertension; E78.00 Pure hypercholesterolemia, unspecified
CPT/HCPCS: 36415; 70450; 80048; 80076; 82947; 83735; 84484; 85025; 87804; 87811; 93005; 96360; 99284; J7030